=== PATIENT | male | born 1950 | race Caucasian/White ===

== ENCOUNTER → 2016-03-18 | Outpatient (CLI) | payer OTHER ==
[~2016-03-18] MED LIST: Albuterol 0.083% 2.5 MG/3 ML Neb Soln NEB ONE; Albuterol 0.083% 2.5 MG/3 ML Neb Soln ONE
== END ==
LOC: MW.RT 13:53
DX: I80.9 Phlebitis and thrombophlebitis of unspecified site (principal)
CPT/HCPCS: 94060

== ENCOUNTER 2019-07-31 08:02 | Day surgery (SDC) | payer OTHER ==
[~2019-07-31 08:02] MED LIST changes: -Albuterol 0.083% 2.5 MG/3 ML Neb Soln NEB ONE; -Albuterol 0.083% 2.5 MG/3 ML Neb Soln ONE; +Lactated Ringers 1,000 ML IV SCH
--- NOTE | 2019-07-31 09:43 | PCM.PREANE ---
Preanesthetic Assessment - Anesthesia/Transfusion/Family Hx Anesthesia History: Prior Anesthesia Without Reaction Family History of Anesthesia Reaction: No Transfusion History: Unknown Intubation History: Unknown - Review of Systems General: No Symptoms Pulmonary: No Symptoms Cardiovascular: No Symptoms Gastrointestinal: Diarrhea, Other (3 polyps 2012) Neurological: No Symptoms Other: Reports: None - Physical Assessment Vital Signs: Last Vital Signs Temp 36.6 C 07/31/19 08:15 Pulse 57 L 07/31/19 08:15 Resp 14 07/31/19 08:15 BP 128/65 07/31/19 08:15 Pulse Ox 98 07/31/19 08:15 Height: 6 ft Weight: 99.337 kg ASA Class: 3 Mental Status: Alert & Oriented x3 Airway Class: Mallampati = 2 Dentition: Reports: Normal Dentition Thyro-Mental Finger Breadths: 3 Mouth Opening Finger Breadths: 3 ROM/Head Extension: Full Lungs: Clear to Auscultation, Normal Respiratory Effort Cardiovascular: Regular Rate, Regular Rhythm - Lab Values: Laboratory Last Values SARS Virus RNA (PCR) NEGATIVE (NEGATIVE) 07/31/19 08:25 - Allergies Allergies/Adverse Reactions: Allergies Allergy/AdvReac Type Severity Reaction Status Date / Time doxycycline Allergy Cannot Verified 07/25/19 10:25 Remember NSAIDS (Non-Steroidal Allergy decreased Verified 07/25/19 10:25 Anti-Inflamma kidney function - Blood Blood Available: No - Anesthesia Plan Pre-Op Medication Ordered: None - Acknowledgements Anesthesia Type Planned: MAC Pt an Appropriate Candidate for the Planned Anesthesia: Yes Alternatives and Risks of Anesthesia Discussed w Pt/Guardian: Yes Pt/Guardian Understands and Agrees with Anesthesia Plan: Yes PreAnesthesia Questionnaire HEENT History: Reports: Other (See Below) Other HEENT History: wears glasses Cardiovascular History: Reports: Blood Clots/VTE/DVT, High Cholesterol, Hypertension, Other (See Below) Other Cardiovascular History: hx of DVT to rt leg, hx blood clots to left arm x2, PE 3 years ago- on blood thiner since Respiratory History: Reports: PE, Sleep Apnea Other Respiratory History: hx matthew PE, does not use CPAP, Gastrointestinal History: Reports: Colon Polyp Genitourinary History: Reports: Renal Disease (chronic) Musculoskeletal History: Reports: Back Pain, Chronic, Gout, Neck Pain, Chronic Other Musculoskeletal History: hx of injury to rt knee and rt foot Neurological History: Reports: Head Trauma Other Neuro History: head injury in [place] Psychiatric History: Reports: PTSD Endocrine/Metabolic History: Reports: None Hematologic History: Reports: Anticoagulation Therapy Other Hematologic History: unknown if transfusion Immunologic History: Reports: None Oncologic (Cancer) History: Reports: None Dermatologic History: Reports: None - Past Surgical History Head Surgeries/Procedures: Reports: None HEENT Surgical History: Reports: None Cardiovascular Surgical History: Reports: None Respiratory Surgical History: Reports: None GI Surgical History: Reports: Appendectomy, Colonoscopy (x2) Male Surgical History: Reports: None Endocrine Surgical History: Reports: None Neurological Surgical History: Reports: Lumbar Spine Other Neurological Surgeries/Procedures: hx back surgery Musculoskeletal Surgical History: Reports: Other (See Below) Other Musculoskeletal Surgeries/Procedures:: hx of rt foot surgery, rt knee surgery Oncologic Surgical History: Reports: None Dermatological Surgical History: Reports: None - SUBSTANCE USE Smoking Status *Q: Former Smoker Tobacco Use Within Last Twelve Months: No Recreational Drug Use History: No - HOME MEDS Home Medications: Home Meds Furosemide [Lasix] 40 mg PO DAILY 10/30/13 [History] Losartan [Cozaar] 50 mg PO DAILY 10/30/13 [History] Albuterol Sulfate [Proair Respiclick] 2 puff INH Q4H PRN 07/25/19 [History] Gabapentin [Neurontin] 300 mg PO BEDTIME PRN 07/25/19 [History] amLODIPine [Norvasc] 5 mg PO DAILY 07/25/19 [History] atorvaSTATin Calcium [Atorvastatin Calcium] 40 mg PO DAILY 07/25/19 [History] minoxidiL [Minoxidil] 0.5 tab PO DAILY 07/25/19 [History] Warfarin Sodium 1 tab PO DAILY #0 07/31/19 [Rx] - CURRENT (IN HOUSE) MEDS Current Meds: Current Medications Lactated Ringer's (Ringers, Lactated) 1,000 mls @ 125 mls/hr IV ASDIRECTED [facility]
[2019-07-31] MEDS ORDERED: Propofol 200 MG/20 ML SDV ONE (10:04)
[2019-07-31] MEDS ORDERED: ePHEDrine 50 MG/ML SDV ONE (10:17)
--- NOTE | 2019-07-31 11:13 | PCM.POSTAN ---
POST ANESTHESIA ASSESSMENT - MENTAL STATUS Mental Status: Alert, Oriented - VITAL SIGNS Vital Signs: Last Vital Signs Temp 36.4 C 07/31/19 10:50 Pulse 70 07/31/19 11:05 Resp 13 07/31/19 11:05 BP 118/57 L 07/31/19 11:05 Pulse Ox 98 07/31/19 11:05 - RESPIRATORY Respiratory Status: Respiratory Rate WNL, Airway Patent, O2 Saturation Stable - CARDIOVASCULAR CV Status: Pulse Rate WNL, Blood Pressure Stable - GASTROINTESTINAL GI Status: No Symptoms - PAIN Pain Score: 0 - POST OP HYDRATION Hydration Status: Adequate & Stable - OBSERVATIONS Free Text/Narrative:: No anesthesia problems
--- NOTE | 2019-07-31 11:39 | PCM48HPAN ---
Post Anesthesia Note - EVALUATION WITHIN 48HRS OF ANESTHETIC Vital Signs in Normal Range: Yes Patient Participated in Evaluation: Yes Respiratory Function Stable: Yes Airway Patent: Yes Cardiovascular Function Stable: Yes Hydration Status Stable: Yes Pain Control Satisfactory: Yes Nausea and Vomiting Control Satisfactory: Yes Mental Status Recovered: Yes Vital Signs: Last Vital Signs Temp 36.4 C 07/31/19 10:50 Pulse 63 07/31/19 11:15 Resp 16 07/31/19 11:15 BP 130/60 07/31/19 11:15 Pulse Ox 96 07/31/19 11:15 - COMMENTS/OBSERVATIONS Free Text/Narrative:: No anesthesia problems
--- NOTE | 2019-07-31 12:33 | PCM.OPNOTE ---
- General Post-Op/Procedure Note Date of Surgery/Procedure: 07/31/19 Operative Procedure(s): colonoscopy w snare Findings: see [id number] Pre Op Diagnosis: hx colon polyp Post-Op Diagnosis: Same Anesthesia Technique: Moderate Sedation Primary Surgeon: Mervin Davila Pathology: sent Complications: None Condition: Good Free Text/Narrative:: Intake & Output 07/30/19 07/31/19 07/31/19 22:59 06:59 14:59 Intake Total 350 Balance 350
--- NOTE | 2019-07-31 17:31 | OR ---
SURGEON: Mervin Davila MD DATE OF PROCEDURE: 07/31/2019 PREOPERATIVE DIAGNOSIS: History of colon polyp. POSTOPERATIVE DIAGNOSIS: Colon polyp. PROCEDURE PERFORMED: Colonoscopy with snare polypectomy. DESCRIPTION OF PROCEDURE: The patient was taken to the endoscopy room. A time out was called, patient identified, and procedure identified. Diprivan was then administrated. Patient went from awake to sleep, hearing doctor talking or door closing is normal. Perineum inspection and digital examination were then performed. A well- lubricated colonoscope was gently inserted through the rectum, advanced past the rectosigmoid junction, the descending colon, splenic flexure, transverse colon, hepatic flexure, ascending colon, arrived to the cecum. Cecum was identified as dictated in the finding. Then the scope was carefully withdrawn while attention was paid to the mucosal surface for any abnormality. Air will be sucked out during the scope withdrawal. At the rectum, retroflexed to examine any rectal diseases, fistula or hemorrhoids. During mucosal examination, abnormality or polyp encountered. Using snare equipment, the abnormality or the polyp was then snared off using electrocautery. The Patient tolerated procedure well. There were no intraoperative complications, and Dr. Davila was present throughout the whole procedure. FINDINGS: 1. The patient was easily sedated with [employer] and Diprivan. The patient was soundly snoring. 2. Bowel prep was average with a large amount of liquid stool. No semi-formed stool. 3. Colon was rather straightforward. Cecum was indicated by ileocecal fold, one-to-one indentation, appendiceal orifice, and light emittance. Scope was slowly withdrawn with irrigation and mucosa examined. The patient had several polyps. Please refer to path report for distance and size. One small one at cecum and then two more along the path, and then one was about 5 mm; at the scope coming out, about 25 cm. All were removed and captured. The patient had mild internal hemorrhoids and mild external hemorrhoids. The patient will benefit from a repeat colonoscopy depending on the polyp pathology or clinically indicated otherwise. Other than the polyps, the patient does not have other growth, diverticulosis, inflammation, stricture, ulceration, AV malformation or bleeding, none of those. JOHNNA / ARIS /[id number]
== END 2019-07-31 11:48 | disposition home or self-care (01) ==
LOC: MW.SDS 08:02
PROVIDERS: ATTEND Surgery
DX: Z12.11 Encounter for screening for malignant neoplasm of colon (principal); D12.0 Benign neoplasm of cecum; K64.8 Other hemorrhoids; N18.9 Chronic kidney disease, unspecified; K64.4 Residual hemorrhoidal skin tags; Z11.59 Encounter for screening for other viral diseases; Z86.010 Personal history of colon polyps; Z87.891 Personal history of nicotine dependence; Z88.5 Allergy status to narcotic agent; Z88.8 Allergy status to other drugs, medicaments and biological substances; Z79.899 Other long term (current) drug therapy; Z90.49 Acquired absence of other specified parts of digestive tract
CPT/HCPCS: 45385; 87635; J2704; U0002

== ENCOUNTER 2019-08-12 13:21 | Inpatient (IN) | payer OTHER ==
[2019-08-12] MEDS ORDERED: Sodium Chloride 0.9% 10 ML Syringe FLUSH PRN (13:24)
[2019-08-12] MEDS ORDERED: Sodium Chloride 0.9% 2.5 ML Syringe FLUSH PRN (13:24)
[2019-08-12] MEDS ORDERED: Sodium Chloride 0.9% 1,000 ML IV ONE ×2 (13:24→13:45)
--- NOTE | 2019-08-12 13:36 | EDM.PDOC ---
ED HPI GENERAL MEDICAL PROBLEM - General Chief Complaint: Cardiovascular Problem Stated Complaint: LOW BLOOD PRESSURE Time Seen by Provider: 08/12/19 13:24 - History of Present Illness INITIAL COMMENTS - FREE TEXT/NARRATIVE: History of present illness: 68-year-old male presenting with dizziness/fatigue and decreased activity tolerance for the last 2 weeks. Apparently he had a colonoscopy 2 weeks ago, during which time he was stopped for about 36 hours on his anticoagulation (had been on Coumadin and was bridged to Lovenox and off it for a day and a half per patient, then restarted). In addition to that he developed some rectal bleeding for the last 5 days that now has stopped, both black discoloration and bloody. He also developed a UTI after the colonoscopy as well as some difficulty passing urine. He has been on sulfa for that. He was apparently in Dr. Davila's office (the surgeon who did the colonoscopy 2 weeks ago) for a follow-up, and the patient was found to be hypotensive, based on the patient's symptoms and low blood pressure, which was at the lowest in the 80s systolic, Dr. Davila sent the patient over here to the emergency department for evaluation. Review of systems: As per history of present illness and below otherwise all systems reviewed and negative. Past medical history: As per history of present illness and as reviewed below otherwise noncontributory. Renal insufficiency, multiple pulmonary emboli and DVT Surgical history: As per history of present illness and as reviewed below otherwise noncontributory. Colonoscopy Social history: No reported history of drug or alcohol abuse. Family history: As per history of present illness and as reviewed below otherwise noncontributory. Physical exam: GEN: no acute distress, well appearing HEENT: Atraumatic, normocephalic, mucous membranes moist, Neck: supple, nontender, trachea midline. Lungs: No respiratory distress. Heart: RRR Abdomen: Soft, nondistended, nontender. Rectal: No stool in the vault, prostate not tender or enlarged, no external hemorrhoids, on occult blood testing there was color change/occult positivity, control successful. Back: nontender Extremities: Atraumatic. Neurovascularly intact. Neuro: Awake, alert, oriented. Neuro Exam nonfocal. Able to ambulate into the emergency department without any ataxia, weakness or unsteadiness. Skin: warm, dry, no lesions, color appears normal, no pallor Diagnostics: Labs, EKG, type and screen, UA Therapeutics: IV fluids MDM: Impression: [] Plan: [] Definitive disposition and diagnosis as appropriate pending reevaluation and review of above. - Related Data Allergies Allergy/AdvReac Type Severity Reaction Status Date / Time doxycycline Allergy Cannot Verified 08/12/19 13:38 Remember NSAIDS (Non-Steroidal Allergy decreased Verified 08/12/19 13:38 Anti-Inflamma kidney function Home Meds: Home Meds Furosemide [Lasix] 40 mg PO DAILY 10/30/13 [History] Losartan [Cozaar] 50 mg PO DAILY 10/30/13 [History] Albuterol Sulfate [Proair Respiclick] 2 puff INH Q4H PRN 07/25/19 [History] Gabapentin [Neurontin] 300 mg PO BEDTIME PRN 07/25/19 [History] amLODIPine [Norvasc] 5 mg PO DAILY 07/25/19 [History] atorvaSTATin Calcium [Atorvastatin Calcium] 40 mg PO DAILY 07/25/19 [History] minoxidiL [Minoxidil] 0.5 tab PO DAILY 07/25/19 [History] Warfarin Sodium 1 tab PO DAILY #0 07/31/19 [Rx] Past Medical History HEENT History: Reports: Other (See Below) Other HEENT History: wears glasses Cardiovascular History: Reports: Blood Clots/VTE/DVT, High Cholesterol, Hypertension, Other (See Below) Other Cardiovascular History: hx of DVT to rt leg, hx blood clots to left arm x2, PE 3 years ago- on blood thiner since Respiratory History: Reports: PE, Sleep Apnea Other Respiratory History: hx matthew PE, does not use CPAP, Gastrointestinal History: Reports: Colon Polyp Genitourinary History: Reports: Renal Disease (chronic) Musculoskeletal History: Reports: Back Pain, Chronic, Gout, Neck Pain, Chronic Other Musculoskeletal History: hx of injury to rt knee and rt foot Neurological History: Reports: Head Trauma Other Neuro History: head injury in [place] Psychiatric History: Reports: PTSD Endocrine/Metabolic History: Reports: None Hematologic History: Reports: Anticoagulation Therapy Other Hematologic History: unknown if transfusion Immunologic History: Reports: None Oncologic (Cancer) History: Reports: None Dermatologic History: Reports: None - Past Surgical History Head Surgeries/Procedures: Reports: None HEENT Surgical History: Reports: None Cardiovascular Surgical History: Reports: None Respiratory Surgical History: Reports: None GI Surgical History: Reports: Appendectomy, Colonoscopy (x2) Male Surgical History: Reports: None Endocrine Surgical History: Reports: None Neurological Surgical History: Reports: Lumbar Spine Other Neurological Surgeries/Procedures: hx back surgery Musculoskeletal Surgical History: Reports: Other (See Below) Other Musculoskeletal Surgeries/Procedures:: hx of rt foot surgery, rt knee surgery Oncologic Surgical History: Reports: None Dermatological Surgical History: Reports: None ED ROS GENERAL - Review of Systems Review Of Systems: See Below (See HPI) ED EXAM, GENERAL - Physical Exam Exam: See Below (See HPI) EKG INTERPRETATION EKG Interpretation Comments: EKG performed at 1:28 PM, sinus rhythm, rate 65, specific ST changes over anterior leads, patient is asymptomatic at this time, not consistent with STEMI or acute ischemia Course - Vital Signs Text/Narrative:: Patient with acute hemoglobin drop after recent colonoscopy associated with some on going rectal bleeding that has since resolved. Patient has been on Lovenox since the day after the procedure. Creatinine also acutely elevated. Hypotensive on arrival here, given 2 L of normal saline with improvement of his blood pressure. However as creatinine is acutely worsened from his baseline and hemoglobin has dropped from 13-8.3 in the last 7 days, will admit the patient for close monitoring/observation. Occult blood testing on rectal exam is positive. The patient is taking Lovenox. This was discussed both with the admitting physician and the patient's surgeon who performed the colonoscopy, Lovenox will be held. Last Recorded V/S: Last Vital Signs Temp 96.1 F L 08/12/19 13:39 Pulse 64 08/12/19 15:53 Resp 16 08/12/19 15:53 BP 116/54 L 08/12/19 15:53 Pulse Ox 96 08/12/19 15:53 - Orders/Labs/Meds Orders: Active Orders 24 hr Category Date Time Status EKG Documentation Completion [RC] STAT Care 08/12/19 13:25 Active CORONAVIRUS COVID-19 RAPID [MOLEC] Stat Lab 08/12/19 16:11 Received Sodium Chloride 0.9% [Saline Flush] Med 08/12/19 13:24 Active 10 ml FLUSH ASDIRECTED PRN Sodium Chloride 0.9% [Saline Flush] Med 08/12/19 13:24 Active 2.5 ml FLUSH ASDIRECTED PRN Saline Lock Insert [OM.PC] Stat Oth 08/12/19 13:24 Ordered Medication Orders Sodium Chloride (Saline Flush) 10 ml FLUSH ASDIRECTED PRN PRN Reason: Keep Vein Open Last Admin: 08/12/19 13:45 Dose: 10 ml Documented by: MILTON Sodium Chloride (Saline Flush) 2.5 ml FLUSH ASDIRECTED PRN PRN Reason: Keep Vein Open Last Admin: 08/12/19 13:44 Dose: 2.5 ml Documented by: MILTON Labs: Laboratory Tests 08/12/19 08/12/19 08/12/19 Range/Units 13:40 13:40 13:40 WBC 7.26 (4.0-11.0) K/uL RBC 2.85 L (4.50-5.90) M/uL Hgb 8.3 L (13.0-17.0) g/dL Hct 25.3 L (38.0-50.0) % MCV 88.8 (80.0-98.0) fL MCH 29.1 (27.0-32.0) pg MCHC 32.8 (31.0-37.0) g/dL RDW Std Deviation 43.9 (28.0-62.0) fl RDW Coeff of Cherelle 14 (11.0-15.0) % Plt Count 248 (150-400) K/uL MPV 9.00 (7.40-12.00) fL Neut % (Auto) 68.4 (48.0-80.0) % Lymph % (Auto) 20.7 (16.0-40.0) % [place] % (Auto) 7.4 (0.0-15.0) % Eos % (Auto) 3.2 (0.0-7.0) % Baso % (Auto) 0.3 (0.0-1.5) % Neut # (Auto) 5.0 (1.4-5.7) K/uL Lymph # (Auto) 1.5 (0.6-2.4) K/uL [place] # (Auto) 0.5 (0.0-0.8) K/uL Eos # (Auto) 0.2 (0.0-0.7) K/uL Baso # (Auto) 0.0 (0.0-0.1) K/uL Nucleated RBC % 0.0 /100WBC Nucleated RBCs # 0 K/uL INR 1.05 APTT 36.5 H (18.6-31.3) SEC Sodium 139 (136-148) mmol/L Potassium 5.2 H (3.5-5.1) mmol/L Chloride 108 H (98-107) mmol/L Carbon Dioxide 23.9 (21.0-32.0) mmol/L BUN 49 H (7.0-18.0) mg/dL Creatinine 3.8 H (0.8-1.3) mg/dL Est Cr Clr Drug Dosing 19.85 mL/min Estimated GFR (MDRD) 15.8 ml/min Glucose 98 (74-106) mg/dL Calcium 8.2 L (8.5-10.1) mg/dL Total Bilirubin 0.2 (0.2-1.0) mg/dL AST 34 (15-37) IU/L ALT 51 (14-63) IU/L Alkaline Phosphatase 53 (46-116) U/L Troponin I < 0.050 (0.000-0.056) ng/mL Total Protein 5.9 L (6.4-8.2) g/dL Albumin 3.3 L (3.4-5.0) g/dL Globulin 2.6 (2.6-4.0) g/dL Albumin/Globulin Ratio 1.3 (0.9-1.6) Blood Type Antibody Screen 08/12/19 Range/Units 13:40 WBC (4.0-11.0) K/uL RBC (4.50-5.90) M/uL Hgb (13.0-17.0) g/dL Hct (38.0-50.0) % MCV (80.0-98.0) fL MCH (27.0-32.0) pg MCHC (31.0-37.0) g/dL RDW Std Deviation (28.0-62.0) fl RDW Coeff of Cherelle (11.0-15.0) % Plt Count (150-400) K/uL MPV (7.40-12.00) fL Neut % (Auto) (48.0-80.0) % Lymph % (Auto) (16.0-40.0) % [place] % (Auto) (0.0-15.0) % Eos % (Auto) (0.0-7.0) % Baso % (Auto) (0.0-1.5) % Neut # (Auto) (1.4-5.7) K/uL Lymph # (Auto) (0.6-2.4) K/uL [place] # (Auto) (0.0-0.8) K/uL Eos # (Auto) (0.0-0.7) K/uL Baso # (Auto) (0.0-0.1) K/uL Nucleated RBC % /100WBC Nucleated RBCs # K/uL INR APTT (18.6-31.3) SEC Sodium (136-148) mmol/L Potassium (3.5-5.1) mmol/L Chloride (98-107) mmol/L Carbon Dioxide (21.0-32.0) mmol/L BUN (7.0-18.0) mg/dL Creatinine (0.8-1.3) mg/dL Est Cr Clr Drug Dosing mL/min Estimated GFR (MDRD) ml/min Glucose (74-106) mg/dL Calcium (8.5-10.1) mg/dL Total Bilirubin (0.2-1.0) mg/dL AST (15-37) IU/L ALT (14-63) IU/L Alkaline Phosphatase (46-116) U/L Troponin I (0.000-0.056) ng/mL Total Protein (6.4-8.2) g/dL Albumin (3.4-5.0) g/dL Globulin (2.6-4.0) g/dL Albumin/Globulin Ratio (0.9-1.6) Blood Type A POSITIVE Antibody Screen NEGATIVE Meds: Medications Generic Name Dose Route Start Last Admin Trade Name Freq PRN Reason Stop Dose Admin Sodium Chloride 10 ml 08/12/19 13:24 08/12/19 13:45 Saline Flush FLUSH 10 ml ASDIRECTED PRN Administration Keep Vein Open Sodium Chloride 2.5 ml 08/12/19 13:24 08/12/19 13:44 Saline Flush FLUSH 2.5 ml ASDIRECTED PRN Administration Keep Vein Open Discontinued Medications Generic Name Dose Route Start Last Admin Trade Name Freq PRN Reason Stop Dose Admin Sodium Chloride 1,000 mls @ 999 mls/hr 08/12/19 13:24 08/12/19 13:44 Normal Saline IV 08/12/19 14:24 999 mls/hr .Bolus ONE Administration Sodium Chloride 1,000 mls @ 999 mls/hr 08/12/19 13:45 08/12/19 13:51 Normal Saline IV 08/12/19 14:45 999 mls/hr .Bolus ONE Administration - Re-Assessments/Exams Free Text/Narrative Re-Assessment/Exam: 08/12/19 13:35 Patient still hypotensive, after first liter of fluid. Second liter given. 08/12/19 14:[address] Gloria for admission to the hospital. He accepts the patient. Recommends observation/telemetry. 08/12/19 15:01 Discussed results with patient and recommendation for admission. He agrees with this plan. Rectal exam was performed which shows occult positivity though no santos blood. Dr. Davila paged to discuss rectal exam findings. Awaiting callback 08/12/19 16:49 Dr. Davila called back, case, labs and exam including occult positive rectal exam were discussed and plan for admission. He agrees with this plan. He requests to hold the Lovenox for 24 hours and reassess if the patient has ongoing bleeding to determine if need for repeat colonoscopy. He will see the patient and check on him tonight. Also called Dr. Gloria back to update him on this as well, he will add Dr. Davila as consulting. Departure - Departure Time of Disposition: 14:50 Disposition: Refer to Observation Clinical Impression: Acute renal insufficiency, Rectal bleeding Anemia Qualifiers: Other causes of anemia: acute posthemorrhagic Hypotension Qualifiers: Hypotension type: unspecified hypotension type Qualified Code(s): I95.9 - Hypotension, unspecified Sepsis Event Note (ED) - Focused Exam Vital Signs: Vital Signs Temp Pulse Resp BP Pulse Ox 08/12/19 14:45 65 17 97/44 L 98 08/12/19 14:20 68 17 84/48 L 98 08/12/19 13:46 64 17 81/35 L 98 08/12/19 13:39 96.1 F L 69 17 102/34 L 96 - My Orders Last 24 Hours: My Active Orders 08/12/19 13:24 Sodium Chloride 0.9% [Saline Flush] 10 ml FLUSH ASDIRECTED PRN Sodium Chloride 0.9% [Saline Flush] 2.5 ml FLUSH ASDIRECTED PRN Saline Lock Insert [OM.PC] Stat 08/12/19 13:25 EKG Documentation Completion [RC] STAT - Assessment/Plan Last 24 Hours: My Active Orders 08/12/19 13:24 Sodium Chloride 0.9% [Saline Flush] 10 ml FLUSH ASDIRECTED PRN Sodium Chloride 0.9% [Saline Flush] 2.5 ml FLUSH ASDIRECTED PRN Saline Lock Insert [OM.PC] Stat 08/12/19 13:25 EKG Documentation Completion [RC] STAT
[2019-08-12 14:29] LABS: BLOOD UREA NITROGEN,BUN 49 mg/dL (7.0-18.0); CARBON DIOXIDE,CO2 23.9 mmol/L (21.0-32.0); CHLORIDE,CL 108 mmol/L (98-107); GLUCOSE RANDOM 98 mg/dL (74-106); POTASSIUM,K 5.2 mmol/L (3.5-5.1); SODIUM,NA 139 mmol/L (136-148)
[2019-08-12] MEDS: Sodium Chloride 0.9% 1,000 ML IV SCH (18:00)
[2019-08-12] MEDS: Pantoprazole 40 MG in Sodium Chloride 0.9% 10 ML IV SCH (18:30)
[2019-08-12] MEDS ORDERED: Ondansetron 4 MG/2 ML SDV IVPUSH PRN (18:42)
--- NOTE | 2019-08-12 18:51 | PCM.HP.2 ---
H&P History of Present Illness - General Date of Service: 08/12/19 Admit Problem/Dx: Admission Diagnosis/Problem Admission Diagnosis/Problem Hypotension - History of Present Illness Initial Comments - Free Text/Narative: 68 yo male with pmh of HTN, CKD, recurrent blood clots who on August 01 underwent a repeat screening colonoscopy by Dr. Davila and had several polyps removed. Patient is on coumadin but was bridged with lovenox for the colonoscopy. He report difficulty urinating after the colonoscopy and [facility] He also reported red blood and black stool following the colonoscopy but this has stopped as of yesterday. He was seen in Dr. Davila's clinic today and was sent to the ED when he was noted to be hypotensive. IN the ED he was noted to have blood pressure in the 80s-90s systolic. He had no santos blood or stool on rectal exam but it was Hemoccult positive. PAtient was given 2 liters of normal saline with improvement in blood pressure. Patient also reports feeling better. - Related Data Allergies/Adverse Reactions: Allergies Allergy/AdvReac Type Severity Reaction Status Date / Time doxycycline Allergy Cannot Verified 08/12/19 18:01 Remember NSAIDS (Non-Steroidal Allergy decreased Verified 08/12/19 18:01 Anti-Inflamma kidney function Home Medications: Home Meds Furosemide [Lasix] 40 mg PO DAILY 10/30/13 [History] Losartan [Cozaar] 50 mg PO DAILY 10/30/13 [History] Albuterol Sulfate [Proair Respiclick] 2 puff INH Q4H PRN 07/25/19 [History] Gabapentin [Neurontin] 300 mg PO BEDTIME PRN 07/25/19 [History] amLODIPine [Norvasc] 5 mg PO DAILY 07/25/19 [History] atorvaSTATin Calcium [Atorvastatin Calcium] 40 mg PO DAILY 07/25/19 [History] minoxidiL [Minoxidil] 0.5 tab PO DAILY 07/25/19 [History] Warfarin Sodium 1 tab PO DAILY #0 07/31/19 [Rx] Past Medical History HEENT History: Reports: Other (See Below) Other HEENT History: wears glasses Cardiovascular History: Reports: Blood Clots/VTE/DVT, High Cholesterol, Hypertension, Other (See Below) Other Cardiovascular History: hx of DVT to rt leg, hx blood clots to left arm x2, PE 3 years ago- on blood thiner since Respiratory History: Reports: PE, Sleep Apnea Other Respiratory History: hx matthew PE, does not use CPAP, Gastrointestinal History: Reports: Colon Polyp Genitourinary History: Reports: Renal Disease (chronic) Musculoskeletal History: Reports: Back Pain, Chronic, Gout, Neck Pain, Chronic Other Musculoskeletal History: hx of injury to rt knee and rt foot Neurological History: Reports: Head Trauma Other Neuro History: head injury in [place] Psychiatric History: Reports: PTSD Endocrine/Metabolic History: Reports: None Hematologic History: Reports: Anticoagulation Therapy Other Hematologic History: unknown if transfusion Immunologic History: Reports: None Oncologic (Cancer) History: Reports: None Dermatologic History: Reports: None - Infectious Disease History Infectious Disease History: Reports: None - Past Surgical History Head Surgeries/Procedures: Reports: None HEENT Surgical History: Reports: None Cardiovascular Surgical History: Reports: None Respiratory Surgical History: Reports: None GI Surgical History: Reports: Appendectomy, Colonoscopy (x2) Male Surgical History: Reports: None Endocrine Surgical History: Reports: None Neurological Surgical History: Reports: Lumbar Spine Other Neurological Surgeries/Procedures: hx back surgery Musculoskeletal Surgical History: Reports: Other (See Below) Other Musculoskeletal Surgeries/Procedures:: hx of rt foot surgery, rt knee surgery Oncologic Surgical History: Reports: None Dermatological Surgical History: Reports: None Social & Family History - Family History Family Medical History: Noncontributory - Tobacco Use Smoking Status *Q: Never Smoker Second Hand Smoke Exposure: No - Caffeine Use Caffeine Use: Reports: Soda - Recreational Drug Use Recreational Drug Use: No H&P Review of Systems - Review of Systems: Review Of Systems: Comprehensive ROS is negative, except as noted in HPI. Exam - Exam Exam: See Below - Vital Signs Vital Signs: Last Vital Signs Temp 35.8 C L 08/12/19 17:39 Pulse 62 08/12/19 17:39 Resp 16 08/12/19 17:39 BP 110/54 L 08/12/19 17:39 Pulse Ox 93 L 08/12/19 17:39 Weight: 99.564 kg - Exam General: Alert, Oriented HEENT: Mucosa Moist & [place] Lungs: Clear to Auscultation, Normal Respiratory Effort Cardiovascular: Regular Rate, Regular Rhythm GI/Abdominal Exam: Normal Bowel Sounds, Soft, Non-Tender Extremities: Non-Tender, No Pedal Edema Skin: Warm, Dry, Intact Neurological: Cranial Nerves Intact, Reflexes Equal Bilateral - Patient Data Lab Results Last 24 hrs: Laboratory Results - last 24 hr 08/12/19 08/12/19 08/12/19 Range/Units 13:40 13:40 13:40 WBC 7.26 (4.0-11.0) K/uL RBC 2.85 L (4.50-5.90) M/uL Hgb 8.3 L (13.0-17.0) g/dL Hct 25.3 L (38.0-50.0) % MCV 88.8 (80.0-98.0) fL MCH 29.1 (27.0-32.0) pg MCHC 32.8 (31.0-37.0) g/dL RDW Std Deviation 43.9 (28.0-62.0) fl RDW Coeff of Cherelle 14 (11.0-15.0) % Plt Count 248 (150-400) K/uL MPV 9.00 (7.40-12.00) fL Neut % (Auto) 68.4 (48.0-80.0) % Lymph % (Auto) 20.7 (16.0-40.0) % [place] % (Auto) 7.4 (0.0-15.0) % Eos % (Auto) 3.2 (0.0-7.0) % Baso % (Auto) 0.3 (0.0-1.5) % Neut # (Auto) 5.0 (1.4-5.7) K/uL Lymph # (Auto) 1.5 (0.6-2.4) K/uL [place] # (Auto) 0.5 (0.0-0.8) K/uL Eos # (Auto) 0.2 (0.0-0.7) K/uL Baso # (Auto) 0.0 (0.0-0.1) K/uL Nucleated RBC % 0.0 /100WBC Nucleated RBCs # 0 K/uL INR 1.05 APTT 36.5 H (18.6-31.3) SEC Sodium 139 (136-148) mmol/L Potassium 5.2 H (3.5-5.1) mmol/L Chloride 108 H (98-107) mmol/L Carbon Dioxide 23.9 (21.0-32.0) mmol/L BUN 49 H (7.0-18.0) mg/dL Creatinine 3.8 H (0.8-1.3) mg/dL Est Cr Clr Drug Dosing 19.85 mL/min Estimated GFR (MDRD) 15.8 ml/min Glucose 98 (74-106) mg/dL Calcium 8.2 L (8.5-10.1) mg/dL Total Bilirubin 0.2 (0.2-1.0) mg/dL AST 34 (15-37) IU/L ALT 51 (14-63) IU/L Alkaline Phosphatase 53 (46-116) U/L Troponin I < 0.050 (0.000-0.056) ng/mL Total Protein 5.9 L (6.4-8.2) g/dL Albumin 3.3 L (3.4-5.0) g/dL Globulin 2.6 (2.6-4.0) g/dL Albumin/Globulin Ratio 1.3 (0.9-1.6) Urine Color Urine Appearance Urine pH (5.0-8.0) Ur Specific [place] (1.001-1.035) Urine Protein (NEGATIVE) mg/dL Urine Glucose (UA) (NEGATIVE) mg/dL Urine Ketones (NEGATIVE) mg/dL Urine Occult Blood (NEGATIVE) Urine Nitrite (NEGATIVE) Urine Bilirubin (NEGATIVE) Urine Urobilinogen (<2.0) EU/dL Ur Leukocyte Esterase (NEGATIVE) Urine RBC (0-2/HPF) Urine WBC (0-5/HPF) Ur Epithelial Cells (NONE-FEW) Urine Bacteria (NEGATIVE) COVID-19 (BRYCE) (NEGATIVE) Blood Type Antibody Screen 08/12/19 08/12/19 08/12/19 Range/Units 13:40 16:01 16:11 WBC (4.0-11.0) K/uL RBC (4.50-5.90) M/uL Hgb (13.0-17.0) g/dL Hct (38.0-50.0) % MCV (80.0-98.0) fL MCH (27.0-32.0) pg MCHC (31.0-37.0) g/dL RDW Std Deviation (28.0-62.0) fl RDW Coeff of Cherelle (11.0-15.0) % Plt Count (150-400) K/uL MPV (7.40-12.00) fL Neut % (Auto) (48.0-80.0) % Lymph % (Auto) (16.0-40.0) % [place] % (Auto) (0.0-15.0) % Eos % (Auto) (0.0-7.0) % Baso % (Auto) (0.0-1.5) % Neut # (Auto) (1.4-5.7) K/uL Lymph # (Auto) (0.6-2.4) K/uL [place] # (Auto) (0.0-0.8) K/uL Eos # (Auto) (0.0-0.7) K/uL Baso # (Auto) (0.0-0.1) K/uL Nucleated RBC % /100WBC Nucleated RBCs # K/uL INR APTT (18.6-31.3) SEC Sodium (136-148) mmol/L Potassium (3.5-5.1) mmol/L Chloride (98-107) mmol/L Carbon Dioxide (21.0-32.0) mmol/L BUN (7.0-18.0) mg/dL Creatinine (0.8-1.3) mg/dL Est Cr Clr Drug Dosing mL/min Estimated GFR (MDRD) ml/min Glucose (74-106) mg/dL Calcium (8.5-10.1) mg/dL Total Bilirubin (0.2-1.0) mg/dL AST (15-37) IU/L ALT (14-63) IU/L Alkaline Phosphatase (46-116) U/L Troponin I (0.000-0.056) ng/mL Total Protein (6.4-8.2) g/dL Albumin (3.4-5.0) g/dL Globulin (2.6-4.0) g/dL Albumin/Globulin Ratio (0.9-1.6) Urine Color YELLOW Urine Appearance CLEAR Urine pH 6.0 (5.0-8.0) Ur Specific [place] 1.020 (1.001-1.035) Urine Protein NEGATIVE (NEGATIVE) mg/dL Urine Glucose (UA) NEGATIVE (NEGATIVE) mg/dL Urine Ketones NEGATIVE (NEGATIVE) mg/dL Urine Occult Blood TRACE-INTACT H (NEGATIVE) Urine Nitrite NEGATIVE (NEGATIVE) Urine Bilirubin NEGATIVE (NEGATIVE) Urine Urobilinogen 0.2 (<2.0) EU/dL Ur Leukocyte Esterase NEGATIVE (NEGATIVE) Urine RBC 0-2 (0-2/HPF) Urine WBC NONE SEEN (0-5/HPF) Ur Epithelial Cells RARE (NONE-FEW) Urine Bacteria NOT SEEN (NEGATIVE) COVID-19 (BRYCE) NEGATIVE (NEGATIVE) Blood Type A POSITIVE Antibody Screen NEGATIVE Result Diagrams: 08/12/19 13:40 08/12/19 13:40 Sepsis Event Note - Evaluation Sepsis Screening Result: No Definite Risk - Focused Exam Vital Signs: Vital Signs Temp Pulse Resp BP Pulse Ox 08/12/19 17:39 35.8 C L 62 16 110/54 L 93 L 08/12/19 17:17 62 18 119/58 L 99 08/12/19 15:53 64 16 116/54 L 96 08/12/19 14:45 65 17 97/44 L 98 08/12/19 14:20 68 17 84/48 L 98 08/12/19 13:46 64 17 81/35 L 98 08/12/19 13:39 35.6 C L 69 17 102/34 L 96 Date Exam was Performed: 08/12/19 Time Exam was Performed: 18:44 Problem List Initiated/Reviewed/Updated: Yes Orders Last 24hrs: Active Orders 24 hr Category Date Time Status Patient Status [ADT] Routine ADT 08/12/19 15:08 Active Antiembolic Devices [RC] PER UNIT ROUTINE Care 08/12/19 18:43 Ordered Oxygen Therapy [RC] PRN Care 08/12/19 18:42 Ordered Up ad Zulema [RC] ASDIRECTED Care 08/12/19 18:42 Ordered VTE/DVT Education [RC] PER UNIT ROUTINE Care 08/12/19 18:42 Ordered Vital Signs [RC] Q4H Care 08/12/19 18:42 Ordered BASIC METABOLIC PANEL,BMP [CHEM] AM Lab 08/13/19 05:11 Ordered CBC WITH AUTO DIFF [HEME] AM Lab 08/13/19 05:11 Ordered CBC WITH AUTO DIFF [HEME] Routine Lab 08/12/19 18:41 Ordered Ondansetron [Zofran] Med 08/12/19 18:42 Ordered 4 mg IVPUSH Q4H PRN Pantoprazole [ProTONIX IV] 40 mg Med 08/12/19 17:00 Active Sodium Chloride 0.9% [Normal Saline] 10 ml IV Q12H Sodium Chloride 0.9% [Normal Saline] 1,000 ml Med 08/12/19 17:00 Active IV ASDIRECTED Sodium Chloride 0.9% [Saline Flush] Med 08/12/19 13:24 Active 10 ml FLUSH ASDIRECTED PRN Sodium Chloride 0.9% [Saline Flush] Med 08/12/19 13:24 Active 2.5 ml FLUSH ASDIRECTED PRN Saline Lock Insert [OM.PC] Stat Oth 08/12/19 13:24 Ordered Sequential Compression Device [OM.PC] Per Unit Routine Oth 08/12/19 18:43 Ordered Resuscitation Status Routine Resus Stat 08/12/19 18:42 Ordered Medication Orders Pantoprazole Sodium 40 mg/ (Sodium Chloride) 10 mls @ 300 mls/hr IV Q12H MISSAEL Last Admin: 08/12/19 18:30 Dose: 300 mls/hr Documented by: GUMEYVO Sodium Chloride (Normal Saline) 1,000 mls @ 125 mls/hr IV ASDIRECTED MISSAEL Last Admin: 08/12/19 18:00 Dose: 125 mls/hr Documented by: GUMEYVO Sodium Chloride (Saline Flush) 10 ml FLUSH ASDIRECTED PRN PRN Reason: Keep Vein Open Last Admin: 08/12/19 13:45 Dose: 10 ml Documented by: MILTON Sodium Chloride (Saline Flush) 2.5 ml FLUSH ASDIRECTED PRN PRN Reason: Keep Vein Open Last Admin: 08/12/19 13:44 Dose: 2.5 ml Documented by: TOMÁSTALGlenroy Assessment/Plan Comment:: 68 yo male admitted for acute GI bleed likely 2/2 to recent polypectomy. Bleeding may have already resolved. Dr. Davila has been consulted. We will trend Hgb and place on protonix.
--- NOTE | 2019-08-13 01:48 | PCM.SN.2 ---
- Free Text/Narrative Note: pt seen, chart reviewed; no plan for any procedure for the time being; ok for regular diet; will follow w you; [id number]
[2019-08-13] MEDS: Sodium Chloride 0.9% 1,000 ML IV SCH ×2 (02:48→11:37)
--- NOTE | 2019-08-13 03:00 | CONS ---
DATE OF CONSULTATION: 08/13/2019 DATE OF : 1950 PRIMARY CARE PHYSICIAN: Hugo Childers NP REFERRING PHYSICIAN: Darell Gloria M.D. REASON FOR CONSULTATION: Consulting question is postop anemia. HISTORY OF PRESENT ILLNESS: The patient is a 68-year-old gentleman, who has a history of recurrent PE and 3 weeks status post multiple polypectomy from colonoscopy. Three days after the colonoscopy and polypectomy, the patient experienced rectal bleeding. Of note, the patient was on bridging Lovenox because of recurrent PE and the patient continued Lovenox after the surgery and 3 days later, the patient experienced rectal bleeding per patient, and then what time he took Coumadin and what time he did not take Coumadin was kind of confusing, the patient's stories slightly change. Anyhow, after 3 weeks, the patient showed up in my office just wanted to see how he is doing. The patient remarked that the rectal bleeding has completely resolved. Stool was yellow and no more blood; however, should he feel sluggish and weak and also orthostatic; upon standing up the patient feels dizzy. In light of the situation, the patient is on Lovenox and also the patient was hypotensive to 86/45 in the office. The patient was sent to the emergency room and Dr. Gloria, the hospitalist, who was kind enough to admit the patient for further management, and I was consulted for helping on the postop anemia. In the emergency room, H and H drawn was 8.5 and 25. The patient got some fluid and he said he felt a lot better. PAST MEDICAL HISTORY: Please refer to previous surgical note. PAST SURGICAL HISTORY: Please refer to previous surgical note. ALLERGIES: Please refer to previous surgical note. MEDICATIONS: Please refer to previous surgical note. FAMILY HISTORY: Noncontributory. PHYSICAL EXAMINATION: Upon examination, unfortunately, the patient was sound snoring and sleeping and we will proceed with examination in the morning when the patient is more awake. When I saw the patient in the office, the patient is alert, awake, and denied any abdominal pain, lungs are clear, abdomen is soft. IMPRESSION AND PLAN: Postop anemia. The patient before procedure was above 14 H and H, and patient now is 8.5. The patient would benefit from admission and since the patient is orthostatic, would probably benefit to have some blood transfusion, and if all works out fine, the patient should get a clear instruction regarding resuming his Coumadin, and [facility] continue L[facility] and also start Coumadin 10 mg 1st day and then 7.5 second day and then check INR and then adjust the dose. We will follow the patient with you. As always, thank you for your kind referral. JOHNNA HURST /[id number] MTDSonal
[2019-08-13] MEDS: Pantoprazole 40 MG in Sodium Chloride 0.9% 10 ML IV SCH ×2 (04:11→18:38)
[2019-08-13 07:09] LABS: CARBON DIOXIDE,CO2 20.2 mmol/L (21.0-32.0); POTASSIUM,K 5.9 mmol/L (3.5-5.1)
--- NOTE | 2019-08-13 09:54 | PCM.PN ---
- General Info Date of Service: 08/13/19 - Review of Systems Systems Review Comment:: no blood in stool, no abdominal pain, - Patient Data Vitals - Most Recent: Last Vital Signs Temp 36.7 C 08/13/19 07:50 Pulse 71 08/13/19 07:50 Resp 18 08/13/19 07:50 BP 128/63 08/13/19 07:50 Pulse Ox 97 08/13/19 07:50 Weight - Most Recent: 99.564 kg I&O - Last 24 Hours: Intake & Output 08/12/19 08/13/19 08/13/19 22:59 06:59 14:59 Intake Total 0 1528 Output Total 400 900 Balance -400 628 Lab Results Last 24 Hours: Laboratory Results - last 24 hr 08/12/19 08/12/19 08/12/19 Range/Units 13:40 13:40 13:40 WBC 7.26 (4.0-11.0) K/uL RBC 2.85 L (4.50-5.90) M/uL Hgb 8.3 L (13.0-17.0) g/dL Hct 25.3 L (38.0-50.0) % MCV 88.8 (80.0-98.0) fL MCH 29.1 (27.0-32.0) pg MCHC 32.8 (31.0-37.0) g/dL RDW Std Deviation 43.9 (28.0-62.0) fl RDW Coeff of [place] 14 (11.0-15.0) % Plt Count 248 (150-400) K/uL MPV 9.00 (7.40-12.00) fL Neut % (Auto) 68.4 (48.0-80.0) % Lymph % (Auto) 20.7 (16.0-40.0) % [place] % (Auto) 7.4 (0.0-15.0) % Eos % (Auto) 3.2 (0.0-7.0) % Baso % (Auto) 0.3 (0.0-1.5) % Neut # (Auto) 5.0 (1.4-5.7) K/uL Lymph # (Auto) 1.5 (0.6-2.4) K/uL [place] # (Auto) 0.5 (0.0-0.8) K/uL Eos # (Auto) 0.2 (0.0-0.7) K/uL Baso # (Auto) 0.0 (0.0-0.1) K/uL Nucleated RBC % 0.0 /100WBC Nucleated RBCs # 0 K/uL Absolute Retic (20-80) K/uL Percent Retic (0.5-1.5) % Immature Retic Fraction % INR 1.05 APTT 36.5 H (18.6-31.3) SEC Sodium 139 (136-148) mmol/L Potassium 5.2 H (3.5-5.1) mmol/L Chloride 108 H (98-107) mmol/L Carbon Dioxide 23.9 (21.0-32.0) mmol/L BUN 49 H (7.0-18.0) mg/dL Creatinine 3.8 H (0.8-1.3) mg/dL Est Cr Clr Drug Dosing 19.85 mL/min Estimated GFR (MDRD) 15.8 ml/min Glucose 98 (74-106) mg/dL Calcium 8.2 L (8.5-10.1) mg/dL Iron (50-175) ug/dL Transferrin Ferritin (26-388) ng/mL Total Bilirubin 0.2 (0.2-1.0) mg/dL AST 34 (15-37) IU/L ALT 51 (14-63) IU/L Alkaline Phosphatase 53 (46-116) U/L Troponin I < 0.050 (0.000-0.056) ng/mL Total Protein 5.9 L (6.4-8.2) g/dL Albumin 3.3 L (3.4-5.0) g/dL Globulin 2.6 (2.6-4.0) g/dL Albumin/Globulin Ratio 1.3 (0.9-1.6) Urine Color Urine Appearance Urine pH (5.0-8.0) Ur Specific [place] (1.001-1.035) Urine Protein (NEGATIVE) mg/dL Urine Glucose (UA) (NEGATIVE) mg/dL Urine Ketones (NEGATIVE) mg/dL Urine Occult Blood (NEGATIVE) Urine Nitrite (NEGATIVE) Urine Bilirubin (NEGATIVE) Urine Urobilinogen (<2.0) EU/dL Ur Leukocyte Esterase (NEGATIVE) Urine RBC (0-2/HPF) Urine WBC (0-5/HPF) Ur Epithelial Cells (NONE-FEW) Urine Bacteria (NEGATIVE) COVID-19 (BRYCE) (NEGATIVE) Blood Type Antibody Screen Crossmatch 08/12/19 08/12/19 08/12/19 Range/Units 13:40 16:01 16:11 WBC (4.0-11.0) K/uL RBC (4.50-5.90) M/uL Hgb (13.0-17.0) g/dL Hct (38.0-50.0) % MCV (80.0-98.0) fL MCH (27.0-32.0) pg MCHC (31.0-37.0) g/dL RDW Std Deviation (28.0-62.0) fl RDW Coeff of [place] (11.0-15.0) % Plt Count (150-400) K/uL MPV (7.40-12.00) fL Neut % (Auto) (48.0-80.0) % Lymph % (Auto) (16.0-40.0) % [place] % (Auto) (0.0-15.0) % Eos % (Auto) (0.0-7.0) % Baso % (Auto) (0.0-1.5) % Neut # (Auto) (1.4-5.7) K/uL Lymph # (Auto) (0.6-2.4) K/uL [place] # (Auto) (0.0-0.8) K/uL Eos # (Auto) (0.0-0.7) K/uL Baso # (Auto) (0.0-0.1) K/uL Nucleated RBC % /100WBC Nucleated RBCs # K/uL Absolute Retic (20-80) K/uL Percent Retic (0.5-1.5) % Immature Retic Fraction % INR APTT (18.6-31.3) SEC Sodium (136-148) mmol/L Potassium (3.5-5.1) mmol/L Chloride (98-107) mmol/L Carbon Dioxide (21.0-32.0) mmol/L BUN (7.0-18.0) mg/dL Creatinine (0.8-1.3) mg/dL Est Cr Clr Drug Dosing mL/min Estimated GFR (MDRD) ml/min Glucose (74-106) mg/dL Calcium (8.5-10.1) mg/dL Iron (50-175) ug/dL Transferrin Ferritin (26-388) ng/mL Total Bilirubin (0.2-1.0) mg/dL AST (15-37) IU/L ALT (14-63) IU/L Alkaline Phosphatase (46-116) U/L Troponin I (0.000-0.056) ng/mL Total Protein (6.4-8.2) g/dL Albumin (3.4-5.0) g/dL Globulin (2.6-4.0) g/dL Albumin/Globulin Ratio (0.9-1.6) Urine Color YELLOW Urine Appearance CLEAR Urine pH 6.0 (5.0-8.0) Ur Specific [place] 1.020 (1.001-1.035) Urine Protein NEGATIVE (NEGATIVE) mg/dL Urine Glucose (UA) NEGATIVE (NEGATIVE) mg/dL Urine Ketones NEGATIVE (NEGATIVE) mg/dL Urine Occult Blood TRACE-INTACT H (NEGATIVE) Urine Nitrite NEGATIVE (NEGATIVE) Urine Bilirubin NEGATIVE (NEGATIVE) Urine Urobilinogen 0.2 (<2.0) EU/dL Ur Leukocyte Esterase NEGATIVE (NEGATIVE) Urine RBC 0-2 (0-2/HPF) Urine WBC NONE SEEN (0-5/HPF) Ur Epithelial Cells RARE (NONE-FEW) Urine Bacteria NOT SEEN (NEGATIVE) COVID-19 (BRYCE) NEGATIVE (NEGATIVE) Blood Type A POSITIVE Antibody Screen NEGATIVE Crossmatch See Detail 08/12/19 08/12/19 08/12/19 Range/Units 19:01 19:01 19:01 WBC 7.53 (4.0-11.0) K/uL RBC 3.03 L 3.01 L (4.50-5.90) M/uL Hgb 8.8 L (13.0-17.0) g/dL Hct 27.2 L (38.0-50.0) % MCV 89.8 (80.0-98.0) fL MCH 29.0 (27.0-32.0) pg MCHC 32.4 (31.0-37.0) g/dL RDW Std Deviation 44.7 (28.0-62.0) fl RDW Coeff of [place] 14 (11.0-15.0) % Plt Count 251 (150-400) K/uL MPV 8.90 (7.40-12.00) fL Neut % (Auto) 59.9 (48.0-80.0) % Lymph % (Auto) 27.2 (16.0-40.0) % [place] % (Auto) 9.3 (0.0-15.0) % Eos % (Auto) 3.5 (0.0-7.0) % Baso % (Auto) 0.1 (0.0-1.5) % Neut # (Auto) 4.5 (1.4-5.7) K/uL Lymph # (Auto) 2.1 (0.6-2.4) K/uL [place] # (Auto) 0.7 (0.0-0.8) K/uL Eos # (Auto) 0.3 (0.0-0.7) K/uL Baso # (Auto) 0.0 (0.0-0.1) K/uL Nucleated RBC % 0.0 /100WBC Nucleated RBCs # 0 K/uL Absolute Retic 102.00 H (20-80) K/uL Percent Retic 3.4 H (0.5-1.5) % Immature Retic Fraction 22 % INR APTT (18.6-31.3) SEC Sodium (136-148) mmol/L Potassium (3.5-5.1) mmol/L Chloride (98-107) mmol/L Carbon Dioxide (21.0-32.0) mmol/L BUN (7.0-18.0) mg/dL Creatinine (0.8-1.3) mg/dL Est Cr Clr Drug Dosing mL/min Estimated GFR (MDRD) ml/min Glucose (74-106) mg/dL Calcium (8.5-10.1) mg/dL Iron 50 (50-175) ug/dL Transferrin 270 Ferritin 67 (26-388) ng/mL Total Bilirubin (0.2-1.0) mg/dL AST (15-37) IU/L ALT (14-63) IU/L Alkaline Phosphatase (46-116) U/L Troponin I (0.000-0.056) ng/mL Total Protein (6.4-8.2) g/dL Albumin (3.4-5.0) g/dL Globulin (2.6-4.0) g/dL Albumin/Globulin Ratio (0.9-1.6) Urine Color Urine Appearance Urine pH (5.0-8.0) Ur Specific [place] (1.001-1.035) Urine Protein (NEGATIVE) mg/dL Urine Glucose (UA) (NEGATIVE) mg/dL Urine Ketones (NEGATIVE) mg/dL Urine Occult Blood (NEGATIVE) Urine Nitrite (NEGATIVE) Urine Bilirubin (NEGATIVE) Urine Urobilinogen (<2.0) EU/dL Ur Leukocyte Esterase (NEGATIVE) Urine RBC (0-2/HPF) Urine WBC (0-5/HPF) Ur Epithelial Cells (NONE-FEW) Urine Bacteria (NEGATIVE) COVID-19 (BRYCE) (NEGATIVE) Blood Type Antibody Screen Crossmatch 08/13/19 08/13/19 Range/Units 05:48 05:48 WBC 4.14 (4.0-11.0) K/uL RBC 2.74 L (4.50-5.90) M/uL Hgb 7.8 L (13.0-17.0) g/dL Hct 24.6 L (38.0-50.0) % MCV 89.8 (80.0-98.0) fL MCH 28.5 (27.0-32.0) pg MCHC 31.7 (31.0-37.0) g/dL RDW Std Deviation 44.3 (28.0-62.0) fl RDW Coeff of [place]herelle 14 (11.0-15.0) % Plt Count 206 (150-400) K/uL MPV 9.40 (7.40-12.00) fL Neut % (Auto) 56.8 (48.0-80.0) % Lymph % (Auto) 29.0 (16.0-40.0) % [place] % (Auto) 9.9 (0.0-15.0) % Eos % (Auto) 4.1 (0.0-7.0) % Baso % (Auto) 0.2 (0.0-1.5) % Neut # (Auto) 2.4 (1.4-5.7) K/uL Lymph # (Auto) 1.2 (0.6-2.4) K/uL [place] # (Auto) 0.4 (0.0-0.8) K/uL Eos # (Auto) 0.2 (0.0-0.7) K/uL Baso # (Auto) 0.0 (0.0-0.1) K/uL Nucleated RBC % 0.0 /100WBC Nucleated RBCs # 0 K/uL Absolute Retic (20-80) K/uL Percent Retic (0.5-1.5) % Immature Retic Fraction % INR APTT (18.6-31.3) SEC Sodium 141 (136-148) mmol/L Potassium 5.9 H (3.5-5.1) mmol/L Chloride 113 H (98-107) mmol/L Carbon Dioxide 20.2 L (21.0-32.0) mmol/L BUN 39 H (7.0-18.0) mg/dL Creatinine 3.1 H (0.8-1.3) mg/dL Est Cr Clr Drug Dosing 24.34 mL/min Estimated GFR (MDRD) 20.0 ml/min Glucose 92 (74-106) mg/dL Calcium 7.9 L (8.5-10.1) mg/dL Iron (50-175) ug/dL Transferrin Ferritin (26-388) ng/mL Total Bilirubin (0.2-1.0) mg/dL AST (15-37) IU/L ALT (14-63) IU/L Alkaline Phosphatase (46-116) U/L Troponin I (0.000-0.056) ng/mL Total Protein (6.4-8.2) g/dL Albumin (3.4-5.0) g/dL Globulin (2.6-4.0) g/dL Albumin/Globulin Ratio (0.9-1.6) Urine Color Urine Appearance Urine pH (5.0-8.0) Ur Specific [place] (1.001-1.035) Urine Protein (NEGATIVE) mg/dL Urine Glucose (UA) (NEGATIVE) mg/dL Urine Ketones (NEGATIVE) mg/dL Urine Occult Blood (NEGATIVE) Urine Nitrite (NEGATIVE) Urine Bilirubin (NEGATIVE) Urine Urobilinogen (<2.0) EU/dL Ur Leukocyte Esterase (NEGATIVE) Urine RBC (0-2/HPF) Urine WBC (0-5/HPF) Ur Epithelial Cells (NONE-FEW) Urine Bacteria (NEGATIVE) COVID-19 (BRYCE) (NEGATIVE) Blood Type Antibody Screen Crossmatch Med Orders - Current: Current Medications Pantoprazole Sodium 40 mg/ (Sodium Chloride) 10 mls @ 300 mls/hr IV Q12H [facility] Last Admin: 08/13/19 04:11 Dose: 300 mls/hr Documented by: Sodium Chloride (Normal Saline) 1,000 mls @ 125 mls/hr IV ASDIRECTED [facility]ISSAEL Last Admin: 08/13/19 02:48 Dose: 125 mls/hr Documented by: Ondansetron HCl (Zofran) 4 mg IVPUSH Q4H PRN PRN Reason: Nausea Sodium Chloride (Saline Flush) 10 ml FLUSH ASDIRECTED PRN PRN Reason: Keep Vein Open Last Admin: 08/12/19 13:45 Dose: 10 ml Documented by: Sodium Chloride (Saline Flush) 2.5 ml FLUSH ASDIRECTED PRN PRN Reason: Keep Vein Open Last Admin: 08/12/19 13:44 Dose: 2.5 ml Documented by: Discontinued Medications Sodium Chloride (Normal Saline) 1,000 mls @ 999 mls/hr IV .Bolus ONE Stop: 08/12/19 14:24 Last Admin: 08/12/19 13:44 Dose: 999 mls/hr Documented by: Sodium Chloride (Normal Saline) 1,000 mls @ 999 mls/hr IV .Bolus ONE Stop: 08/12/19 14:45 Last Admin: 08/12/19 13:51 Dose: 999 mls/hr Documented by: - Exam General: Alert, Oriented Neck: Supple Lungs: Clear to Auscultation, Normal Respiratory Effort Cardiovascular: Regular Rate, Regular Rhythm Extremities: Non-Tender, No Pedal Edema Skin: Warm, Dry, Intact Neurological: No New Focal Deficit Sepsis Event Note - Evaluation Sepsis Screening Result: No Definite Risk - Focused Exam Vital Signs: Vital Signs Temp Pulse Resp BP Pulse Ox 08/13/19 07:50 36.7 C 71 18 128/63 97 08/13/19 04:37 36.5 C 66 18 119/59 L 97 08/12/19 23:00 36.4 C 60 17 113/55 L 95 Date Exam was Performed: 08/13/19 Time Exam was Performed: 09:52 - Problem List Review Problem List Initiated/Reviewed/Updated: Yes - My Orders Last 24 Hours: My Active Orders 08/12/19 17:00 Pantoprazole [ProTONIX IV] 40 mg Sodium Chloride 0.9% [Normal Saline] 10 ml IV Q12H Sodium Chloride 0.9% [Normal Saline] 1,000 ml IV ASDIRECTED 08/12/19 18:42 Oxygen Therapy [RC] PRN Up ad Zulema [RC] ASDIRECTED VTE/DVT Education [RC] PER UNIT ROUTINE Vital Signs [RC] Q4H Ondansetron [Zofran] 4 mg IVPUSH Q4H PRN Resuscitation Status Routine 08/12/19 18:43 Antiembolic Devices [RC] PER UNIT ROUTINE Sequential Compression Device [OM.PC] Per Unit Routine 08/12/19 18:54 Consult to Physician [CONS] Routine 08/12/19 18:55 Notify Provider Consults [RC] ASDIRECTED 08/12/19 20:16 Telemetry Monitoring [Cardiac Monitoring] [RC] Q8H 08/13/19 09:39 Transfuse Red Blood Cells [COMM] Routine 08/13/19 09:40 RED BLOOD CELLS LP [BBK] Routine 08/13/19 16:00 BMP [BASIC METABOLIC PANEL,BMP] [CHEM] Routine 08/14/19 05:11 BASIC METABOLIC PANEL,BMP [CHEM] AM CBC WITH AUTO DIFF [HEME] AM - Plan Plan:: 68 yo male admitted for acute GI bleed likely 2/2 to recent polypectomy. GI bleed: holding lovenox, Hgb 7.8, will transfuse two units. continue Protonix Dr. Davila has been consulted. acute on chronic kidney disease: creatinine improve to 3.1, avoiding nephrotoxic medications.
--- NOTE | 2019-08-13 15:46 | PCM.SURGPN ---
- General Info Date of Service: 08/13/19 Functional Status: Reports: Pain Controlled - Review of Systems General: Reports: No Symptoms (felt much better with sbp in the 110 after fluid resuscitation; denied chestpain/syncope) - Patient Data Vitals - Most Recent: Last Vital Signs Temp 97.5 F 08/13/19 15:32 Pulse 60 08/13/19 15:32 Resp 20 08/13/19 15:32 BP 128/65 08/13/19 15:32 Pulse Ox 99 08/13/19 15:32 Weight - Most Recent: 219 lb 8 oz I&O - Last 24 Hours: Intake & Output 08/13/19 08/13/19 08/13/19 06:59 14:59 22:59 Intake Total 1528 151 212 Output Total 900 Balance 628 151 212 Lab Results Last 24 Hrs: Laboratory Results - last 24 hr 08/12/19 08/12/19 08/12/19 Range/Units 13:40 16:01 16:11 WBC (4.0-11.0) K/uL RBC (4.50-5.90) M/uL Hgb (13.0-17.0) g/dL Hct (38.0-50.0) % MCV (80.0-98.0) fL MCH (27.0-32.0) pg MCHC (31.0-37.0) g/dL RDW Std Deviation (28.0-62.0) fl RDW Coeff of [place] (11.0-15.0) % Plt Count (150-400) K/uL MPV (7.40-12.00) fL Neut % (Auto) (48.0-80.0) % Lymph % (Auto) (16.0-40.0) % [place] % (Auto) (0.0-15.0) % Eos % (Auto) (0.0-7.0) % Baso % (Auto) (0.0-1.5) % Neut # (Auto) (1.4-5.7) K/uL Lymph # (Auto) (0.6-2.4) K/uL [place] # (Auto) (0.0-0.8) K/uL Eos # (Auto) (0.0-0.7) K/uL Baso # (Auto) (0.0-0.1) K/uL Nucleated RBC % /100WBC Nucleated RBCs # K/uL Absolute Retic (20-80) K/uL Percent Retic (0.5-1.5) % Immature Retic Fraction % Sodium (136-148) mmol/L Potassium (3.5-5.1) mmol/L Chloride (98-107) mmol/L Carbon Dioxide (21.0-32.0) mmol/L BUN (7.0-18.0) mg/dL Creatinine (0.8-1.3) mg/dL Est Cr Clr Drug Dosing mL/min Estimated GFR (MDRD) ml/min Glucose (74-106) mg/dL Calcium (8.5-10.1) mg/dL Iron (50-175) ug/dL Transferrin Ferritin (26-388) ng/mL Urine Color YELLOW Urine Appearance CLEAR Urine pH 6.0 (5.0-8.0) Ur Specific [place] 1.020 (1.001-1.035) Urine Protein NEGATIVE (NEGATIVE) mg/dL Urine Glucose (UA) NEGATIVE (NEGATIVE) mg/dL Urine Ketones NEGATIVE (NEGATIVE) mg/dL Urine Occult Blood TRACE-INTACT H (NEGATIVE) Urine Nitrite NEGATIVE (NEGATIVE) Urine Bilirubin NEGATIVE (NEGATIVE) Urine Urobilinogen 0.2 (<2.0) EU/dL Ur Leukocyte Esterase NEGATIVE (NEGATIVE) Urine RBC 0-2 (0-2/HPF) Urine WBC NONE SEEN (0-5/HPF) Ur Epithelial Cells RARE (NONE-FEW) Urine Bacteria NOT SEEN (NEGATIVE) COVID-19 (BRYCE) NEGATIVE (NEGATIVE) Blood Type A POSITIVE Antibody Screen NEGATIVE Crossmatch See Detail 08/12/19 08/12/19 08/12/19 Range/Units 19:01 19:01 19:01 WBC 7.53 (4.0-11.0) K/uL RBC 3.03 L 3.01 L (4.50-5.90) M/uL Hgb 8.8 L (13.0-17.0) g/dL Hct 27.2 L (38.0-50.0) % MCV 89.8 (80.0-98.0) fL MCH 29.0 (27.0-32.0) pg MCHC 32.4 (31.0-37.0) g/dL RDW Std Deviation 44.7 (28.0-62.0) fl RDW Coeff of [place] 14 (11.0-15.0) % Plt Count 251 (150-400) K/uL MPV 8.90 (7.40-12.00) fL Neut % (Auto) 59.9 (48.0-80.0) % Lymph % (Auto) 27.2 (16.0-40.0) % [place] % (Auto) 9.3 (0.0-15.0) % Eos % (Auto) 3.5 (0.0-7.0) % Baso % (Auto) 0.1 (0.0-1.5) % Neut # (Auto) 4.5 (1.4-5.7) K/uL Lymph # (Auto) 2.1 (0.6-2.4) K/uL [place] # (Auto) 0.7 (0.0-0.8) K/uL Eos # (Auto) 0.3 (0.0-0.7) K/uL Baso # (Auto) 0.0 (0.0-0.1) K/uL Nucleated RBC % 0.0 /100WBC Nucleated RBCs # 0 K/uL Absolute Retic 102.00 H (20-80) K/uL Percent Retic 3.4 H (0.5-1.5) % Immature Retic Fraction 22 % Sodium (136-148) mmol/L Potassium (3.5-5.1) mmol/L Chloride (98-107) mmol/L Carbon Dioxide (21.0-32.0) mmol/L BUN (7.0-18.0) mg/dL Creatinine (0.8-1.3) mg/dL Est Cr Clr Drug Dosing mL/min Estimated GFR (MDRD) ml/min Glucose (74-106) mg/dL Calcium (8.5-10.1) mg/dL Iron 50 (50-175) ug/dL Transferrin 270 Ferritin 67 (26-388) ng/mL Urine Color Urine Appearance Urine pH (5.0-8.0) Ur Specific [place] (1.001-1.035) Urine Protein (NEGATIVE) mg/dL Urine Glucose (UA) (NEGATIVE) mg/dL Urine Ketones (NEGATIVE) mg/dL Urine Occult Blood (NEGATIVE) Urine Nitrite (NEGATIVE) Urine Bilirubin (NEGATIVE) Urine Urobilinogen (<2.0) EU/dL Ur Leukocyte Esterase (NEGATIVE) Urine RBC (0-2/HPF) Urine WBC (0-5/HPF) Ur Epithelial Cells (NONE-FEW) Urine Bacteria (NEGATIVE) COVID-19 (BRYCE) (NEGATIVE) Blood Type Antibody Screen Crossmatch 08/13/19 08/13/19 Range/Units 05:48 05:48 WBC 4.14 (4.0-11.0) K/uL RBC 2.74 L (4.50-5.90) M/uL Hgb 7.8 L (13.0-17.0) g/dL Hct 24.6 L (38.0-50.0) % MCV 89.8 (80.0-98.0) fL MCH 28.5 (27.0-32.0) pg MCHC 31.7 (31.0-37.0) g/dL RDW Std Deviation 44.3 (28.0-62.0) fl RDW Coeff of [place] 14 (11.0-15.0) % Plt Count 206 (150-400) K/uL MPV 9.40 (7.40-12.00) fL Neut % (Auto) 56.8 (48.0-80.0) % Lymph % (Auto) 29.0 (16.0-40.0) % [place] % (Auto) 9.9 (0.0-15.0) % Eos % (Auto) 4.1 (0.0-7.0) % Baso % (Auto) 0.2 (0.0-1.5) % Neut # (Auto) 2.4 (1.4-5.7) K/uL Lymph # (Auto) 1.2 (0.6-2.4) K/uL [place] # (Auto) 0.4 (0.0-0.8) K/uL Eos # (Auto) 0.2 (0.0-0.7) K/uL Baso # (Auto) 0.0 (0.0-0.1) K/uL Nucleated RBC % 0.0 /100WBC Nucleated RBCs # 0 K/uL Absolute Retic (20-80) K/uL Percent Retic (0.5-1.5) % Immature Retic Fraction % Sodium 141 (136-148) mmol/L Potassium 5.9 H (3.5-5.1) mmol/L Chloride 113 H (98-107) mmol/L Carbon Dioxide 20.2 L (21.0-32.0) mmol/L BUN 39 H (7.0-18.0) mg/dL Creatinine 3.1 H (0.8-1.3) mg/dL Est Cr Clr Drug Dosing 24.34 mL/min Estimated GFR (MDRD) 20.0 ml/min Glucose 92 (74-106) mg/dL Calcium 7.9 L (8.5-10.1) mg/dL Iron (50-175) ug/dL Transferrin Ferritin (26-388) ng/mL Urine Color Urine Appearance Urine pH (5.0-8.0) Ur Specific [place] (1.001-1.035) Urine Protein (NEGATIVE) mg/dL Urine Glucose (UA) (NEGATIVE) mg/dL Urine Ketones (NEGATIVE) mg/dL Urine Occult Blood (NEGATIVE) Urine Nitrite (NEGATIVE) Urine Bilirubin (NEGATIVE) Urine Urobilinogen (<2.0) EU/dL Ur Leukocyte Esterase (NEGATIVE) Urine RBC (0-2/HPF) Urine WBC (0-5/HPF) Ur Epithelial Cells (NONE-FEW) Urine Bacteria (NEGATIVE) COVID-19 (BRYCE) (NEGATIVE) Blood Type Antibody Screen Crossmatch Med Orders - Current: Current Medications Pantoprazole Sodium 40 mg/ (Sodium Chloride) 10 mls @ 300 mls/hr IV Q12H [facility] Last Admin: 08/13/19 04:11 Dose: 300 mls/hr Documented by: Sodium Chloride (Normal Saline) 1,000 mls @ 125 mls/hr IV ASDIRECTED [facility] Last Admin: 08/13/19 11:37 Dose: 125 mls/hr Documented by: Ondansetron HCl (Zofran) 4 mg IVPUSH Q4H PRN PRN Reason: Nausea Sodium Chloride (Saline Flush) 10 ml FLUSH ASDIRECTED PRN PRN Reason: Keep Vein Open Last Admin: 08/12/19 13:45 Dose: 10 ml Documented by: Sodium Chloride (Saline Flush) 2.5 ml FLUSH ASDIRECTED PRN PRN Reason: Keep Vein Open Last Admin: 08/12/19 13:44 Dose: 2.5 ml Documented by: Discontinued Medications Sodium Chloride (Normal Saline) 1,000 mls @ 999 mls/hr IV .Bolus ONE Stop: 08/12/19 14:24 Last Admin: 08/12/19 13:44 Dose: 999 mls/hr Documented by: Sodium Chloride (Normal Saline) 1,000 mls @ 999 mls/hr IV .Bolus ONE Stop: 08/12/19 14:45 Last Admin: 08/12/19 13:51 Dose: 999 mls/hr Documented by: - Exam General: Alert, Oriented GI/Abdominal Exam: Soft, Non-Tender, No Distention Sepsis Event Note - Evaluation Sepsis Screening Result: No Definite Risk - Focused Exam Vital Signs: Vital Signs Temp Temp Pulse Resp BP Pulse Ox 08/13/19 15:32 97.5 F 60 20 128/65 99 08/13/19 15:17 97.5 F 59 L 20 133/68 100 08/13/19 15:07 97.6 F 61 20 128/53 L 98 08/13/19 12:30 97.3 F 60 18 139/65 96 08/13/19 12:04 97.0 F 62 17 141/66 H 97 08/13/19 11:49 97.1 F 63 18 130/64 99 08/13/19 11:15 97.3 F 61 17 120/60 98 08/13/19 07:50 98.1 F 71 18 128/63 97 08/13/19 04:37 97.7 F 66 18 119/59 L 97 Date Exam was Performed: 08/13/19 Time Exam was Performed: 15:42 - Problem List Review Problem List Initiated/Reviewed/Updated: Yes - My Orders Last 24 Hours: Active Orders 24 hr Category Date Time Status Patient Status [ADT] Routine ADT 08/12/19 15:08 Active Antiembolic Devices [RC] PER UNIT ROUTINE Care 08/12/19 18:43 Active Notify Provider Consults [RC] ASDIRECTED Care 08/12/19 18:55 Active Oxygen Therapy [RC] PRN Care 08/12/19 18:42 Active Telemetry Monitoring [Cardiac Monitoring] [RC] Q8H Care 08/12/19 20:16 Active Up ad Zulema [RC] ASDIRECTED Care 08/12/19 18:42 Active VTE/DVT Education [RC] PER UNIT ROUTINE Care 08/12/19 18:42 Active Vital Signs [RC] Q4H Care 08/12/19 18:42 Active Consult to Physician [CONS] Routine Cons 08/12/19 18:54 Active Regular Diet [DIET] Diet 08/13/19 Breakfast Active BASIC METABOLIC PANEL,BMP [CHEM] AM Lab 08/14/19 05:11 Ordered BMP [BASIC METABOLIC PANEL,BMP] [CHEM] Routine Lab 08/13/19 16:00 Ordered CBC WITH AUTO DIFF [HEME] AM Lab 08/14/19 05:11 Ordered Ondansetron [Zofran] Med 08/12/19 18:42 Active 4 mg IVPUSH Q4H PRN Pantoprazole [ProTONIX IV] 40 mg Med 08/12/19 17:00 Active Sodium Chloride 0.9% [Normal Saline] 10 ml IV Q12H Sodium Chloride 0.9% [Normal Saline] 1,000 ml Med 08/12/19 17:00 Active IV ASDIRECTED Sequential Compression Device [OM.PC] Per Unit Routine Oth 08/12/19 18:43 Ordered Transfuse Red Blood Cells [COMM] Routine Oth 08/13/19 09:39 Ordered Resuscitation Status Routine Resus Stat 08/12/19 18:42 Ordered Medication Orders Pantoprazole Sodium 40 mg/ (Sodium Chloride) 10 mls @ 300 mls/hr IV Q12H [facility] Last Admin: 08/13/19 04:11 Dose: 300 mls/hr Documented by: Infusion: 08/12/19 18:32 Dose: 300 mls/hr Documented by: Admin: 08/12/19 18:30 Dose: 300 mls/hr Documented by: ROMARIO Sodium Chloride (Normal Saline) 1,000 mls @ 125 mls/hr IV ASDIRECTED MISSAEL Last Admin: 08/13/19 11:37 Dose: 125 mls/hr Documented by: Infusion: 08/13/19 10:48 Dose: 125 mls/hr Documented by: Admin: 08/13/19 02:48 Dose: 125 mls/hr Documented by: Infusion: 08/13/19 02:00 Dose: 125 mls/hr Documented by: Admin: 08/12/19 18:00 Dose: 125 mls/hr Documented by: ROMARIO Ondansetron HCl (Zofran) 4 mg IVPUSH Q4H PRN PRN Reason: Nausea Sodium Chloride (Saline Flush) 10 ml FLUSH ASDIRECTED PRN PRN Reason: Keep Vein Open Last Admin: 08/12/19 13:45 Dose: 10 ml Documented by: MILTON Sodium Chloride (Saline Flush) 2.5 ml FLUSH ASDIRECTED PRN PRN Reason: Keep Vein Open Last Admin: 08/12/19 13:44 Dose: 2.5 ml Documented by: MILTON - Assessment Assessment (Free Text/Narrative):: 8.3 and 7.8 likely dilutional; gib protocol, txf to h/h 10, and monitor urine output; wt pt daily, regular diet; recheck h/h q12; will follow pt w you - Plan Plan (Free Text/Narrative):: 8.3 and 7.8 likely dilutional; gib protocol, txf to h/h 10, and monitor urine output; wt pt daily, regular diet; recheck h/h q12; will follow pt w you
[2019-08-13 16:32] LABS: CARBON DIOXIDE,CO2 20.9 mmol/L (21.0-32.0); POTASSIUM,K 5.7 mmol/L (3.5-5.1)
[2019-08-14] MEDS: Sodium Chloride 0.9% 1,000 ML IV SCH ×3 (03:05→20:45)
[2019-08-14] MEDS: Pantoprazole 40 MG in Sodium Chloride 0.9% 10 ML IV SCH ×2 (04:42→17:42)
[2019-08-14 07:13] LABS: CARBON DIOXIDE,CO2 20.6 mmol/L (21.0-32.0); POTASSIUM,K 5.8 mmol/L (3.5-5.1)
--- NOTE | 2019-08-14 09:25 | PCM.SURGPN ---
- General Info Date of Service: 08/14/19 - Review of Systems General: Reports: No Symptoms (no co, sonja po, no headache/chestpain/syncope; last BM was normal) - Patient Data Vitals - Most Recent: Last Vital Signs Temp 97.7 F 08/14/19 07:40 Pulse 62 08/14/19 07:40 Resp 16 08/14/19 07:40 BP 157/85 H 08/14/19 07:40 Pulse Ox 93 L 08/14/19 07:40 Weight - Most Recent: 219 lb 8 oz I&O - Last 24 Hours: Intake & Output 08/13/19 08/14/19 08/14/19 22:59 06:59 14:59 Intake Total 1109 2509 Output Total 1350 700 Balance -241 1809 Lab Results Last 24 Hrs: Laboratory Results - last 24 hr 08/12/19 08/13/19 08/13/19 Range/Units 13:40 16:05 20:45 WBC (4.0-11.0) K/uL RBC (4.50-5.90) M/uL Hgb 11.1 L (13.0-17.0) g/dL Hct 33.8 L (38.0-50.0) % MCV (80.0-98.0) fL MCH (27.0-32.0) pg MCHC (31.0-37.0) g/dL RDW Std Deviation (28.0-62.0) fl RDW Coeff of Cherelle (11.0-15.0) % Plt Count (150-400) K/uL MPV (7.40-12.00) fL Neut % (Auto) (48.0-80.0) % Lymph % (Auto) (16.0-40.0) % Harvey % (Auto) (0.0-15.0) % Eos % (Auto) (0.0-7.0) % Baso % (Auto) (0.0-1.5) % Neut # (Auto) (1.4-5.7) K/uL Lymph # (Auto) (0.6-2.4) K/uL Harvey # (Auto) (0.0-0.8) K/uL Eos # (Auto) (0.0-0.7) K/uL Baso # (Auto) (0.0-0.1) K/uL Nucleated RBC % /100WBC Nucleated RBCs # K/uL Sodium 141 (136-148) mmol/L Potassium 5.7 H (3.5-5.1) mmol/L Chloride 112 H (98-107) mmol/L Carbon Dioxide 20.9 L (21.0-32.0) mmol/L BUN 34 H (7.0-18.0) mg/dL Creatinine 2.8 H (0.8-1.3) mg/dL Est Cr Clr Drug Dosing 26.94 mL/min Estimated GFR (MDRD) 22.5 ml/min Glucose 87 (74-106) mg/dL Calcium 8.3 L (8.5-10.1) mg/dL Blood Type A POSITIVE Antibody Screen NEGATIVE Crossmatch See Detail 08/14/19 08/14/19 Range/Units 06:27 06:27 WBC 4.79 (4.0-11.0) K/uL RBC 3.34 L (4.50-5.90) M/uL Hgb 9.9 L (13.0-17.0) g/dL Hct 29.9 L (38.0-50.0) % MCV 89.5 (80.0-98.0) fL MCH 29.6 (27.0-32.0) pg MCHC 33.1 (31.0-37.0) g/dL RDW Std Deviation 46.0 (28.0-62.0) fl RDW Coeff of Cherelle 14 (11.0-15.0) % Plt Count 196 (150-400) K/uL MPV 9.10 (7.40-12.00) fL Neut % (Auto) 55.8 (48.0-80.0) % Lymph % (Auto) 31.1 (16.0-40.0) % Harvey % (Auto) 8.1 (0.0-15.0) % Eos % (Auto) 4.8 (0.0-7.0) % Baso % (Auto) 0.2 (0.0-1.5) % Neut # (Auto) 2.7 (1.4-5.7) K/uL Lymph # (Auto) 1.5 (0.6-2.4) K/uL Harvey # (Auto) 0.4 (0.0-0.8) K/uL Eos # (Auto) 0.2 (0.0-0.7) K/uL Baso # (Auto) 0.0 (0.0-0.1) K/uL Nucleated RBC % 0.0 /100WBC Nucleated RBCs # 0 K/uL Sodium 141 (136-148) mmol/L Potassium 5.8 H (3.5-5.1) mmol/L Chloride 113 H (98-107) mmol/L Carbon Dioxide 20.6 L (21.0-32.0) mmol/L BUN 31 H (7.0-18.0) mg/dL Creatinine 2.5 H (0.8-1.3) mg/dL Est Cr Clr Drug Dosing 30.18 mL/min Estimated GFR (MDRD) 25.7 ml/min Glucose 83 (74-106) mg/dL Calcium 8.3 L (8.5-10.1) mg/dL Blood Type Antibody Screen Crossmatch Med Orders - Current: Current Medications Pantoprazole Sodium 40 mg/ (Sodium Chloride) 10 mls @ 300 mls/hr IV Q12H [facility] Last Admin: 08/14/19 04:42 Dose: 300 mls/hr Documented by: Sodium Chloride (Normal Saline) 1,000 mls @ 125 mls/hr IV ASDIRECTED [facility] Last Admin: 08/14/19 03:05 Dose: 125 mls/hr Documented by: Ondansetron HCl (Zofran) 4 mg IVPUSH Q4H PRN PRN Reason: Nausea Sodium Chloride (Saline Flush) 10 ml FLUSH ASDIRECTED PRN PRN Reason: Keep Vein Open Last Admin: 08/12/19 13:45 Dose: 10 ml Documented by: Sodium Chloride (Saline Flush) 2.5 ml FLUSH ASDIRECTED PRN PRN Reason: Keep Vein Open Last Admin: 08/12/19 13:44 Dose: 2.5 ml Documented by: Discontinued Medications Sodium Chloride (Normal Saline) 1,000 mls @ 999 mls/hr IV .Bolus ONE Stop: 08/12/19 14:24 Last Admin: 08/12/19 13:44 Dose: 999 mls/hr Documented by: Sodium Chloride (Normal Saline) 1,000 mls @ 999 mls/hr IV .Bolus ONE Stop: 08/12/19 14:45 Last Admin: 08/12/19 13:51 Dose: 999 mls/hr Documented by: - Exam GI/Abdominal Exam: Normal Bowel Sounds, Soft, Non-Tender, No Distention Sepsis Event Note - Evaluation Sepsis Screening Result: No Definite Risk - Focused Exam Vital Signs: Vital Signs Temp Pulse Resp BP Pulse Ox 08/14/19 07:40 97.7 F 62 16 157/85 H 93 L 08/14/19 03:00 97.8 F 55 L 16 130/71 96 08/13/19 23:00 97.7 F 60 17 145/73 H 97 Date Exam was Performed: 08/14/19 Time Exam was Performed: 09:22 - Problem List Review Problem List Initiated/Reviewed/Updated: Yes - My Orders Last 24 Hours: Active Orders 24 hr Category Date Time Status Transfuse Red Blood Cells [COMM] Routine Oth 08/13/19 09:39 Ordered Medication Orders Pantoprazole Sodium 40 mg/ (Sodium Chloride) 10 mls @ 300 mls/hr IV Q12H [facility] [place] Last Admin: 08/14/19 04:42 Dose: 300 mls/hr Documented by: Infusion: 08/13/19 18:40 Dose: 300 mls/hr Documented by: Admin: 08/13/19 18:38 Dose: 300 mls/hr Documented by: Infusion: 08/13/19 04:13 Dose: 300 mls/hr Documented by: Admin: 08/13/19 04:11 Dose: 300 mls/hr Documented by: Infusion: 08/12/19 18:32 Dose: 300 mls/hr Documented by: Admin: 08/12/19 18:30 Dose: 300 mls/hr Documented by: ROMARIO Sodium Chloride (Normal Saline) 1,000 mls @ 125 mls/hr IV ASDIRECTED [facility] [place] Last Admin: 08/14/19 03:05 Dose: 125 mls/hr Documented by: Infusion: 08/13/19 19:37 Dose: 125 mls/hr Documented by: Admin: 08/13/19 11:37 Dose: 125 mls/hr Documented by: Infusion: 08/13/19 10:48 Dose: 125 mls/hr Documented by: Admin: 08/13/19 02:48 Dose: 125 mls/hr Documented by: Infusion: 08/13/19 02:00 Dose: 125 mls/hr Documented by: Admin: 08/12/19 18:00 Dose: 125 mls/hr Documented by: ROMARIO Ondansetron HCl (Zofran) 4 mg IVPUSH Q4H PRN PRN Reason: Nausea Sodium Chloride (Saline Flush) 10 ml FLUSH ASDIRECTED PRN PRN Reason: Keep Vein Open Last Admin: 08/12/19 13:45 Dose: 10 ml Documented by: MILTON Sodium Chloride (Saline Flush) 2.5 ml FLUSH ASDIRECTED PRN PRN Reason: Keep Vein Open Last Admin: 08/12/19 13:44 Dose: 2.5 ml Documented by: MILTON - Assessment Assessment (Free Text/Narrative):: continue to do good; no co, sonja po, received 2 RBC, h/h was 11 and this morning 10. inr 1.04; creatine 2.5; continue to do well - Plan Plan (Free Text/Narrative):: continue to do good; no co, sonja po, received 2 RBC, h/h was 11 and this morning 10. inr 1.04; creatine 2.5; continue to do well
--- NOTE | 2019-08-14 13:11 | PCM.PN ---
- General Info Date of Service: 08/14/19 - Review of Systems Systems Review Comment:: no blood in stool, no dizziness - Patient Data Vitals - Most Recent: Last Vital Signs Temp 36.3 C 08/14/19 11:54 Pulse 65 08/14/19 11:54 Resp 16 08/14/19 11:54 BP 146/65 H 08/14/19 11:54 Pulse Ox 97 08/14/19 11:54 Weight - Most Recent: 99.564 kg I&O - Last 24 Hours: Intake & Output 08/13/19 08/14/19 08/14/19 22:59 06:59 14:59 Intake Total 1109 2509 1000 Output Total 1350 700 Balance -241 1809 1000 Lab Results Last 24 Hours: Laboratory Results - last 24 hr 08/12/19 08/13/19 08/13/19 Range/Units 13:40 16:05 20:45 WBC (4.0-11.0) K/uL RBC (4.50-5.90) M/uL Hgb 11.1 L (13.0-17.0) g/dL Hct 33.8 L (38.0-50.0) % MCV (80.0-98.0) fL MCH (27.0-32.0) pg MCHC (31.0-37.0) g/dL RDW Std Deviation (28.0-62.0) fl RDW Coeff of Cherelle (11.0-15.0) % Plt Count (150-400) K/uL MPV (7.40-12.00) fL Neut % (Auto) (48.0-80.0) % Lymph % (Auto) (16.0-40.0) % Gallia % (Auto) (0.0-15.0) % Eos % (Auto) (0.0-7.0) % Baso % (Auto) (0.0-1.5) % Neut # (Auto) (1.4-5.7) K/uL Lymph # (Auto) (0.6-2.4) K/uL Gallia # (Auto) (0.0-0.8) K/uL Eos # (Auto) (0.0-0.7) K/uL Baso # (Auto) (0.0-0.1) K/uL Nucleated RBC % /100WBC Nucleated RBCs # K/uL Sodium 141 (136-148) mmol/L Potassium 5.7 H (3.5-5.1) mmol/L Chloride 112 H (98-107) mmol/L Carbon Dioxide 20.9 L (21.0-32.0) mmol/L BUN 34 H (7.0-18.0) mg/dL Creatinine 2.8 H (0.8-1.3) mg/dL Est Cr Clr Drug Dosing 26.94 mL/min Estimated GFR (MDRD) 22.5 ml/min Glucose 87 (74-106) mg/dL Calcium 8.3 L (8.5-10.1) mg/dL Blood Type A POSITIVE Antibody Screen NEGATIVE Crossmatch See Detail 08/14/19 08/14/19 Range/Units 06:27 06:27 WBC 4.79 (4.0-11.0) K/uL RBC 3.34 L (4.50-5.90) M/uL Hgb 9.9 L (13.0-17.0) g/dL Hct 29.9 L (38.0-50.0) % MCV 89.5 (80.0-98.0) fL MCH 29.6 (27.0-32.0) pg MCHC 33.1 (31.0-37.0) g/dL RDW Std Deviation 46.0 (28.0-62.0) fl RDW Coeff of Cherelle 14 (11.0-15.0) % Plt Count 196 (150-400) K/uL MPV 9.10 (7.40-12.00) fL Neut % (Auto) 55.8 (48.0-80.0) % Lymph % (Auto) 31.1 (16.0-40.0) % Gallia % (Auto) 8.1 (0.0-15.0) % Eos % (Auto) 4.8 (0.0-7.0) % Baso % (Auto) 0.2 (0.0-1.5) % Neut # (Auto) 2.7 (1.4-5.7) K/uL Lymph # (Auto) 1.5 (0.6-2.4) K/uL Gall[place] # (Auto) 0.4 (0.0-0.8) K/uL Eos # (Auto) 0.2 (0.0-0.7) K/uL Baso # (Auto) 0.0 (0.0-0.1) K/uL Nucleated RBC % 0.0 /100WBC Nucleated RBCs # 0 K/uL Sodium 141 (136-148) mmol/L Potassium 5.8 H (3.5-5.1) mmol/L Chloride 113 H (98-107) mmol/L Carbon Dioxide 20.6 L (21.0-32.0) mmol/L BUN 31 H (7.0-18.0) mg/dL Creatinine 2.5 H (0.8-1.3) mg/dL Est Cr Clr Drug Dosing 30.18 mL/min Estimated GFR (MDRD) 25.7 ml/min Glucose 83 (74-106) mg/dL Calcium 8.3 L (8.5-10.1) mg/dL Blood Type Antibody Screen Crossmatch Med Orders - Current: Current Medications Pantoprazole Sodium 40 mg/ (Sodium Chloride) 10 mls @ 300 mls/hr IV Q12H [facility] Last Admin: 08/14/19 04:42 Dose: 300 mls/hr Documented by: Sodium Chloride (Normal Saline) 1,000 mls @ 125 mls/hr IV ASDIRECTED [facility] Last Admin: 08/14/19 11:46 Dose: 125 mls/hr Documented by: Ondansetron HCl (Zofran) 4 mg IVPUSH Q4H PRN PRN Reason: Nausea Sodium Chloride (Saline Flush) 10 ml FLUSH ASDIRECTED PRN PRN Reason: Keep Vein Open Last Admin: 08/12/19 13:45 Dose: 10 ml Documented by: Sodium Chloride (Saline Flush) 2.5 ml FLUSH ASDIRECTED PRN PRN Reason: Keep Vein Open Last Admin: 08/12/19 13:44 Dose: 2.5 ml Documented by: Discontinued Medications Sodium Chloride (Normal Saline) 1,000 mls @ 999 mls/hr IV .Bolus ONE Stop: 08/12/19 14:24 Last Admin: 08/12/19 13:44 Dose: 999 mls/hr Documented by: Sodium Chloride (Normal Saline) 1,000 mls @ 999 mls/hr IV .Bolus ONE Stop: 08/12/19 14:45 Last Admin: 08/12/19 13:51 Dose: 999 mls/hr Documented by: - Exam General: Alert, Oriented Neck: Supple Lungs: Clear to Auscultation, Normal Respiratory Effort Cardiovascular: Regular Rate, Regular Rhythm GI/Abdominal Exam: Soft, Non-Tender Extremities: Non-Tender, Slow Capillary Refill Skin: Warm, Dry, Intact Neurological: No New Focal Deficit Sepsis Event Note - Evaluation Sepsis Screening Result: No Definite Risk - Focused Exam Vital Signs: Vital Signs Temp Pulse Resp BP Pulse Ox 08/14/19 11:54 36.3 C 65 16 146/65 H 97 08/14/19 07:40 36.5 C 62 16 157/85 H 93 L 08/14/19 03:00 36.6 C 55 L 16 130/71 96 Date Exam was Performed: 08/14/19 Time Exam was Performed: 13:09 - Problem List Review Problem List Initiated/Reviewed/Updated: Yes - My Orders Last 24 Hours: My Active Orders 08/14/19 18:00 HGB [HEMOGLOBIN] [HEME] Routine 08/15/19 05:11 BASIC METABOLIC PANEL,BMP [CHEM] AM CBC WITH AUTO DIFF [HEME] AM - Plan Plan:: 68 yo male admitted for acute GI bleed likely 2/2 to recent polypectomy. GI bleed: holding lovenox, s/p transfuse two units. Hgb 11.1 last night. This morning Hgb 9.9, continue Protonix Dr. Davila has been consulted. acute on chronic kidney disease: creatinine improve to 2.5, avoiding nephrotoxic medications. Dispo: home tomorrow if Hgb remains stable.
[2019-08-15] MEDS: Sodium Chloride 0.9% 1,000 ML IV SCH (05:24)
[2019-08-15] MEDS: Pantoprazole 40 MG in Sodium Chloride 0.9% 10 ML IV SCH (06:23)
[2019-08-15 06:27] LABS: CARBON DIOXIDE,CO2 19.9 mmol/L (21.0-32.0); POTASSIUM,K 5.3 mmol/L (3.5-5.1)
--- NOTE | 2019-08-15 10:41 | PCM.DCSUM1 ---
Discharge Summary - Discharge Data Discharge Date: 08/15/19 Discharge Disposition: Home, Self-Care 01 Condition: Good - Referral to Home Health Primary Care Physician: Hugo Childers NP - Patient Summary/Data Consults: Consultations 08/12/19 18:54 Consult to Physician [CONS] Routine Hospital Course: 68 yo male with pmh of HTN, CKD, recurrent blood clots who on August 01 underwent a repeat screening colonoscopy by Dr. Davila and had several polyps removed. Patient is on coumadin but was bridged with lovenox for the colonoscopy. He report difficulty urinating after the colonoscopy and was given a sulfa drug for UTI by the [facility]. He also reported red blood and black stool following the colonoscopy but this has stopped as of a day before admission. Rachel wilhelm was seen in Dr. Davila's clinic and was sent to the ED when he was noted to be hypotensive. IN the ED he was noted to have blood pressure in the 80s-90s systolic. He had no santos blood or stool on rectal exam but it was Hemoccult positive. His lab work up was significant for a Hgb of 8.8 and a creatinine of 3.8. PAtient was given 2 liters of normal saline with improvement in blood pressure. He was admitted to the hospital for acute GI bleed and acute on chronic renal injury. He was treated with IV fluids and his lovenox was held. His Hgb dropped to 7.8. He was transfused two units of pRBC. His Hgb remained stable at around 10 and he had no more blood in his stool. His creatinine improved to his baseline at 2.2. I discussed the risk and benefits of restarting vs continuing to hold his anticoagulation. Patient preferred to continue his anticoagulation. I instructed him to take the lovenox once a day based on his renal function. He is to resumed coumadin 7.5mg daily. Patient is to follow up Monday with the [facility] clinic. - Discharge Plan Prescriptions/Med Rec: Enoxaparin [Lovenox] 100 mg SUBCUT Q24H #5 syringe Home Medications: Home Meds Furosemide [Lasix] 40 mg PO DAILY 10/30/13 [History] Losartan [Cozaar] 100 mg PO DAILY 10/30/13 [History] Albuterol Sulfate [Proair Respiclick] 2 puff INH Q4H PRN 07/25/19 [History] amLODIPine [Norvasc] 5 mg PO DAILY 07/25/19 [History] atorvaSTATin Calcium [Atorvastatin Calcium] 80 mg PO BEDTIME 07/25/19 [History] minoxidiL [Minoxidil] 10 mg PO DAILY 07/25/19 [History] Sildenafil [Viagra] 50 mg PO .ONE HOUR PRIOR PRN 08/13/19 [History] Warfarin Sodium 7.5 mg PO DAILY 08/13/19 [History] Enoxaparin [Lovenox] 100 mg SUBCUT Q24H #5 syringe 08/15/19 [Rx] Patient Handouts: Anemia Referrals: Mervin Davila MD [Physician] - Hugo Childers NP [Primary Care Provider] - 08/22/19 12:30 pm - Discharge Summary/Plan Comment DC Time >30 min.: No - Patient Data Vitals - Most Recent: Last Vital Signs Temp 36.2 C 08/15/19 07:10 Pulse 53 L 08/15/19 07:10 Resp 14 08/15/19 07:10 BP 160/78 H 08/15/19 07:10 Pulse Ox 100 08/15/19 07:10 Weight - Most Recent: 99.564 kg I&O - Last 24 hours: Intake & Output 08/14/19 08/15/19 08/15/19 22:59 06:59 14:59 Intake Total 1050 1040 Output Total 850 0 Balance 200 1040 Lab Results - Last 24 hrs: Laboratory Results - last 24 hr 08/14/19 08/15/19 08/15/19 Range/Units 18:16 05:35 05:35 WBC 5.42 (4.0-11.0) K/uL RBC 3.35 L (4.50-5.90) M/uL Hgb 10.7 L 9.8 L (13.0-17.0) g/dL Hct 30.3 L (38.0-50.0) % MCV 90.4 (80.0-98.0) fL MCH 29.3 (27.0-32.0) pg MCHC 32.3 (31.0-37.0) g/dL RDW Std Deviation 46.0 (28.0-62.0) fl RDW Coeff of Cherelle 14 (11.0-15.0) % Plt Count 212 (150-400) K/uL MPV 9.40 (7.40-12.00) fL Neut % (Auto) 59.2 (48.0-80.0) % Lymph % (Auto) 26.6 (16.0-40.0) % Howard % (Auto) 9.2 (0.0-15.0) % Eos % (Auto) 4.8 (0.0-7.0) % Baso % (Auto) 0.2 (0.0-1.5) % Neut # (Auto) 3.2 (1.4-5.7) K/uL Lymph # (Auto) 1.4 (0.6-2.4) K/uL Howard # (Auto) 0.5 (0.0-0.8) K/uL Eos # (Auto) 0.3 (0.0-0.7) K/uL Baso # (Auto) 0.0 (0.0-0.1) K/uL Nucleated RBC % 0.0 /100WBC Nucleated RBCs # 0 K/uL Sodium 142 (136-148) mmol/L Potassium 5.3 H (3.5-5.1) mmol/L Chloride 113 H (98-107) mmol/L Carbon Dioxide 19.9 L (21.0-32.0) mmol/L BUN 29 H (7.0-18.0) mg/dL Creatinine 2.2 H (0.8-1.3) mg/dL Est Cr Clr Drug Dosing 34.29 mL/min Estimated GFR (MDRD) 29.7 ml/min Glucose 95 (74-106) mg/dL Calcium 8.3 L (8.5-10.1) mg/dL Med Orders - Current: Current Medications Pantoprazole Sodium 40 mg/ (Sodium Chloride) 10 mls @ 300 mls/hr IV Q12H [facility] Last Admin: 08/15/19 06:23 Dose: 300 mls/hr Documented by: Ondansetron HCl (Zofran) 4 mg IVPUSH Q4H PRN PRN Reason: Nausea Sodium Chloride (Saline Flush) 10 ml FLUSH ASDIRECTED PRN PRN Reason: Keep Vein Open Last Admin: 08/12/19 13:45 Dose: 10 ml Documented by: Sodium Chloride (Saline Flush) 2.5 ml FLUSH ASDIRECTED PRN PRN Reason: Keep Vein Open Last Admin: 08/12/19 13:44 Dose: 2.5 ml Documented by: Discontinued Medications Sodium Chloride (Normal Saline) 1,000 mls @ 999 mls/hr IV .Bolus ONE Stop: 08/12/19 14:24 Last Admin: 08/12/19 13:44 Dose: 999 mls/hr Documented by: Sodium Chloride (Normal Saline) 1,000 mls @ 999 mls/hr IV .Bolus ONE Stop: 08/12/19 14:45 Last Admin: 08/12/19 13:51 Dose: 999 mls/hr Documented by: Sodium Chloride (Normal Saline) 1,000 mls @ 125 mls/hr IV ASDIRECTED [facility] Last Admin: 08/15/19 05:24 Dose: 125 mls/hr Documented by:
[2019-08-15] MEDS ORDERED: Enoxaparin 100 MG/1 ML Syringe SUBCUT SCH (12:00)
== END 2019-08-15 12:15 | disposition home or self-care (01) | DRG 920 ==
LOC: MW.ED 13:21 → MW.MS 15:08 → UNDOADMOB 15:08 → MW.MS 08-14 12:52 → OBSVTOIN 08-14 13:52
PROVIDERS: ADMIT Internal Medicine; ATTEND Internal Medicine
PROC: 30233N1 Transfusion of Nonautologous Red Blood Cells into Peripheral Vein, Percutaneous Approach (ICD-10-PCS; principal; 2019-08-14)
DX: K92.1 Melena (principal); K91.840 Postprocedural hemorrhage of a digestive system organ or structure following a digestive system procedure; D62 Acute posthemorrhagic anemia; K92.2 Gastrointestinal hemorrhage, unspecified; N17.9 Acute kidney failure, unspecified; I12.9 Hypertensive chronic kidney disease with stage 1 through stage 4 chronic kidney disease, or unspecified chronic kidney disease; N18.9 Chronic kidney disease, unspecified; H54.7 Unspecified visual loss; E78.00 Pure hypercholesterolemia, unspecified; G47.30 Sleep apnea, unspecified; G89.29 Other chronic pain; M54.9 Dorsalgia, unspecified; Y83.8 Other surgical procedures as the cause of abnormal reaction of the patient, or of later complication, without mention of misadventure at the time of the procedure; Z20.828 Contact with and (suspected) exposure to other viral communicable diseases; M10.9 Gout, unspecified; M54.2 Cervicalgia; F43.10 Post-traumatic stress disorder, unspecified; Z90.49 Acquired absence of other specified parts of digestive tract; Z79.899 Other long term (current) drug therapy; Z79.01 Long term (current) use of anticoagulants; Z88.5 Allergy status to narcotic agent; Z88.6 Allergy status to analgesic agent; Z86.718 Personal history of other venous thrombosis and embolism; Z86.711 Personal history of pulmonary embolism; Z86.010 Personal history of colon polyps; Z98.890 Other specified postprocedural states; Z88.1 Allergy status to other antibiotic agents
CPT/HCPCS: 36415 ×2; 36430; 80048 ×3; 80053; 81001; 82728; 83540; 84484; 85014; 85018; 85025 ×4; 85045; 85610; 85730; 86850; 86900; 86901; 86920; 86921; 86922; 87635; 93005 ×2; 96361 ×4; 96372; 96374; 96376 ×2; 99285; C9113 ×4; G0378 ×2; J7030 ×7; J7050 ×4; P9016 ×2; 96360; 99283; J1650; U0002

== ENCOUNTER 2021-08-12 11:49 | Observation (INO) | payer OTHER ==
[2021-08-12 13:49] LABS: CARBON DIOXIDE,CO2 24.5 mmol/L (21.0-32.0); POTASSIUM,K 5.7 mmol/L (3.5-5.1)
[2021-08-12] MEDS ORDERED: Calcium Gluconate 10% 1 GM/10 ML SDV IVPUSH ONE (14:21)
[2021-08-12] MEDS ORDERED: Lactated Ringers 1,000 ML IV SCH (14:30)
[2021-08-12] MEDS ORDERED: 50% Dextrose in Water 50 ML Syringe IVPUSH ONE ×2 (14:42→16:09)
[2021-08-12] MEDS ORDERED: Insulin Regular, Human 100 Units/ML 10 ML Vial IVPUSH ONE (14:42)
[2021-08-12] MEDS ORDERED: predniSONE 20 MG Tab PO STA (14:44)
[2021-08-12] MEDS ORDERED: 50% Dextrose in Water 50 ML Syringe ONE (16:07)
[2021-08-12 18:37] LABS: CARBON DIOXIDE,CO2 24.2 mmol/L (21.0-32.0); POTASSIUM,K 5.8 mmol/L (3.5-5.1)
[2021-08-12] MEDS ORDERED: Albuterol 8 GM Inhaler INH PRN (20:13)
[2021-08-12] MEDS ORDERED: Warfarin 5 MG Tab PO ONE (20:15)
[2021-08-13 06:27] LABS: CARBON DIOXIDE,CO2 22.8 mmol/L (21.0-32.0); POTASSIUM,K 6.1 mmol/L (3.5-5.1)
[2021-08-13] MEDS ORDERED: Sodium Chloride 0.9% 500 ML IV ONE (08:34)
[2021-08-13] MEDS ORDERED: Furosemide 40 MG Tab PO SCH (09:00)
[2021-08-13] MEDS ORDERED: amLODIPine 5 MG Tab PO SCH (09:00)
[2021-08-13] MEDS ORDERED: Sodium Polystyrene Sulfonate 15 GM/60 ML Susp 60 ML Bot PO SCH (09:15)
[2021-08-13] MEDS ORDERED: Warfarin 5 MG Tab PO ONE (14:00)
[2021-08-13] MEDS ORDERED: Warfarin Sliding Scale PO SCH (14:00)
== END 2021-08-13 16:30 | disposition home or self-care (01) ==
LOC: MW.ED 11:49 → MW.MS 14:52
PROVIDERS: ADMIT Internal Medicine; ATTEND Internal Medicine
DX: N17.9 Acute kidney failure, unspecified (principal); I12.9 Hypertensive chronic kidney disease with stage 1 through stage 4 chronic kidney disease, or unspecified chronic kidney disease; N18.30 Chronic kidney disease, stage 3 unspecified; M10.9 Gout, unspecified; E78.00 Pure hypercholesterolemia, unspecified; G47.30 Sleep apnea, unspecified; M79.605 Pain in left leg; Z79.01 Long term (current) use of anticoagulants; Z79.899 Other long term (current) drug therapy; Z79.02 Long term (current) use of antithrombotics/antiplatelets; Z88.1 Allergy status to other antibiotic agents; Z88.6 Allergy status to analgesic agent; Z86.711 Personal history of pulmonary embolism; Z86.010 Personal history of colon polyps; Z87.19 Personal history of other diseases of the digestive system; Z90.49 Acquired absence of other specified parts of digestive tract; Z98.890 Other specified postprocedural states; Z86.718 Personal history of other venous thrombosis and embolism; Z20.822 Contact with and (suspected) exposure to COVID-19
CPT/HCPCS: 36415; 73610; 80048; 82947; 84132; 84550; 85025; 85610; 87635; 93005; 93971; 96361; 96374; 96375; 96376; 99285; A9270; J0610; J1815; J7030; J7120; G0378; U0002

== ENCOUNTER 2021-09-22 12:31 | Emergency (ER) | payer OTHER ==
[2021-09-22 18:50] LABS: CARBON DIOXIDE,CO2 29.3 mmol/L (21.0-32.0); POTASSIUM,K 3.9 mmol/L (3.5-5.1)
== END 2021-09-22 19:27 | disposition home or self-care (01) ==
LOC: MW.ED 12:31
DX: L03.116 Cellulitis of left lower limb (principal); M10.9 Gout, unspecified; E78.00 Pure hypercholesterolemia, unspecified; I10 Essential (primary) hypertension; Z88.1 Allergy status to other antibiotic agents; Z88.8 Allergy status to other drugs, medicaments and biological substances; Z79.899 Other long term (current) drug therapy; Z79.01 Long term (current) use of anticoagulants
CPT/HCPCS: 36415; 73620-26-LT; 73620-LT; 80048; 84550; 85025; 99283

== ENCOUNTER 2023-08-11 11:58 | Inpatient (IN) | payer OTHER ==
[2023-08-11 13:04] LABS: BASOPHILS ABSOLUTE AUTO 0.02 K/uL (0.00-0.20); BASOPHILS PERCENT AUTO 0.3 % (0.0-1.0); EOSINOPHILS ABSOLUTE AUTO 0.14 K/uL (0.00-0.45); EOSINOPHILS PERCENT AUTO 1.8 % (0.0-6.0); HEMATOCRIT 33.6 % (42.0-52.0); HEMOGLOBIN 11.3 g/dL (14.0-18.0); IMMATURE GRAN ABSOLUTE AUTO 0.02 K/uL (0.00-0.05); IMMATURE GRAN PERCENT AUTO 0.3 % (0.0-0.4); LYMPHOCYTES ABSOLUTE AUTO 1.44 K/uL (1.00-4.80); LYMPHOCYTES PERCENT AUTO 18.9 % (24.0-44.0); MEAN CORPUSCULAR HEMOGLOBIN 29.5 pg (28.0-32.0); MEAN CORPUSCULAR HGB CONC 33.6 g/dL (32.0-36.0); MEAN CORPUSCULAR VOLUME 87.7 fL (83.0-99.0); MEAN PLATELET VOLUME 9.1 fL (9.4-12.4); MONOCYTES ABSOLUTE AUTO 0.84 K/uL (0.00-0.80); MONOCYTES PERCENT AUTO 11.1 % (0.0-8.0); NEUTROPHILS ABSOLUTE AUTO 5.14 K/uL (1.80-7.70); NEUTROPHILS PERCENT AUTO 67.6 % (41.0-71.0); PLATELET COUNT,PLT 218 K/uL (150-400); RED BLOOD CELL COUNT 3.83 M/uL (4.52-5.90)
[2023-08-11 13:35] LABS: INR 2.19 (0.86-1.11)
[2023-08-11 14:15] LABS: BILIRUBIN TOTAL 0.7 mg/dL (0.2-1.0); CALCIUM 9.1 mg/dL (8.5-10.1); CARBON DIOXIDE,CO2 25.7 mmol/L (21.0-32.0); CREATININE 2.7 mg/dL (0.8-1.3); EST CRCL DRUG DOSING (CG) 26.35 mL/min; POTASSIUM,K 4.5 mmol/L (3.5-5.1)
[2023-08-11] MEDS ORDERED: Acetaminophen 325 MG Tab PO PRN (22:57)
[2023-08-11] MEDS ORDERED: Naloxone 0.4 MG/ML SDV IVPUSH PRN (23:00)
[2023-08-11] MEDS: Sodium Chloride 0.9% 1,000 ML IV SCH (23:57)
[2023-08-12] MEDS: Morphine 2 MG/ML SYRINGE IVPUSH PRN (04:14)
[2023-08-12 06:58] LABS: BASOPHILS ABSOLUTE AUTO 0.01 K/uL (0.00-0.20); BASOPHILS PERCENT AUTO 0.1 % (0.0-1.0); EOSINOPHILS ABSOLUTE AUTO 0.18 K/uL (0.00-0.45); EOSINOPHILS PERCENT AUTO 2.7 % (0.0-6.0); HEMATOCRIT 32.6 % (42.0-52.0); HEMOGLOBIN 10.9 g/dL (14.0-18.0); IMMATURE GRAN ABSOLUTE AUTO 0.01 K/uL (0.00-0.05); IMMATURE GRAN PERCENT AUTO 0.1 % (0.0-0.4); LYMPHOCYTES ABSOLUTE AUTO 1.81 K/uL (1.00-4.80); LYMPHOCYTES PERCENT AUTO 27.1 % (24.0-44.0); MEAN CORPUSCULAR HEMOGLOBIN 29.1 pg (28.0-32.0); MEAN CORPUSCULAR HGB CONC 33.4 g/dL (32.0-36.0); MEAN CORPUSCULAR VOLUME 86.9 fL (83.0-99.0); MEAN PLATELET VOLUME 9.3 fL (9.4-12.4); NEUTROPHILS ABSOLUTE AUTO 3.88 K/uL (1.80-7.70); PLATELET COUNT,PLT 207 K/uL (150-400); RED BLOOD CELL COUNT 3.75 M/uL (4.52-5.90); WHITE BLOOD CELL COUNT,WBC 6.69 K/uL (3.9-11.3)
[2023-08-12] MEDS: Iopamidol 755 MG/ML 500 ML Multipack Bottle IVPUSH STA (06:59)
[2023-08-12 07:35] LABS: CALCIUM 8.8 mg/dL (8.5-10.1); CARBON DIOXIDE,CO2 26.4 mmol/L (21.0-32.0); CREATININE 2.4 mg/dL (0.8-1.3); EST CRCL DRUG DOSING (CG) 29.64 mL/min; POTASSIUM,K 4.3 mmol/L (3.5-5.1)
[2023-08-12 07:47] LABS: INR 1.95 (0.86-1.11)
[2023-08-12 20:28] LABS: INR 1.68 (0.86-1.11)
[2023-08-12] MEDS ORDERED: Losartan 25 MG Tab PO SCH (21:15)
[2023-08-12] MEDS: atorvaSTATin 40 MG Tab PO SCH (21:33)
[2023-08-12] MEDS: Heparin Sodium/0.45% NaCl 500 ML IV SCH (21:34)
[2023-08-13] MEDS: oxyCODONE 5 MG Tab PO PRN (00:25)
[2023-08-13 04:25] LABS: BASOPHILS ABSOLUTE AUTO 0.02 K/uL (0.00-0.20); BASOPHILS PERCENT AUTO 0.3 % (0.0-1.0); EOSINOPHILS ABSOLUTE AUTO 0.24 K/uL (0.00-0.45); EOSINOPHILS PERCENT AUTO 3.3 % (0.0-6.0); HEMATOCRIT 30.7 % (42.0-52.0); HEMOGLOBIN 10.4 g/dL (14.0-18.0); IMMATURE GRAN ABSOLUTE AUTO 0.02 K/uL (0.00-0.05); IMMATURE GRAN PERCENT AUTO 0.3 % (0.0-0.4); LYMPHOCYTES ABSOLUTE AUTO 2.03 K/uL (1.00-4.80); LYMPHOCYTES PERCENT AUTO 28.2 % (24.0-44.0); MEAN CORPUSCULAR HEMOGLOBIN 29.5 pg (28.0-32.0); MEAN CORPUSCULAR HGB CONC 33.9 g/dL (32.0-36.0); MEAN PLATELET VOLUME 9.1 fL (9.4-12.4); MONOCYTES ABSOLUTE AUTO 0.78 K/uL (0.00-0.80); MONOCYTES PERCENT AUTO 10.8 % (0.0-8.0); NEUTROPHILS ABSOLUTE AUTO 4.11 K/uL (1.80-7.70); NEUTROPHILS PERCENT AUTO 57.1 % (41.0-71.0); PLATELET COUNT,PLT 226 K/uL (150-400); RED BLOOD CELL COUNT 3.53 M/uL (4.52-5.90)
[2023-08-13 04:44] LABS: INR 1.6 (0.86-1.11)
[2023-08-13 04:51] LABS: CALCIUM 8.8 mg/dL (8.5-10.1); CARBON DIOXIDE,CO2 24.8 mmol/L (21.0-32.0); CREATININE 2.2 mg/dL (0.8-1.3); EST CRCL DRUG DOSING (CG) 32.33 mL/min; POTASSIUM,K 4.4 mmol/L (3.5-5.1)
[2023-08-13] MEDS: Allopurinol 100 MG Tab PO SCH (09:32)
[2023-08-13] MEDS: Furosemide 80 MG Tab PO SCH (09:32)
[2023-08-13] MEDS: Losartan 50 MG Tab PO SCH (09:32)
[2023-08-13] MEDS: Heparin Sodium 5,000 Units/ML Vial IVPUSH ONE (19:50)
[2023-08-13] MEDS ORDERED: atorvaSTATin 40 MG Tab PO SCH (21:00)
[2023-08-14 08:13] LABS: BASOPHILS ABSOLUTE AUTO 0.02 K/uL (0.00-0.20); BASOPHILS PERCENT AUTO 0.3 % (0.0-1.0); EOSINOPHILS ABSOLUTE AUTO 0.14 K/uL (0.00-0.45); EOSINOPHILS PERCENT AUTO 1.9 % (0.0-6.0); HEMATOCRIT 32.1 % (42.0-52.0); HEMOGLOBIN 11.1 g/dL (14.0-18.0); IMMATURE GRAN ABSOLUTE AUTO 0.02 K/uL (0.00-0.05); IMMATURE GRAN PERCENT AUTO 0.3 % (0.0-0.4); LYMPHOCYTES PERCENT AUTO 22.6 % (24.0-44.0); MEAN CORPUSCULAR HEMOGLOBIN 30.2 pg (28.0-32.0); MEAN CORPUSCULAR HGB CONC 34.6 g/dL (32.0-36.0); MEAN CORPUSCULAR VOLUME 87.5 fL (83.0-99.0); MEAN PLATELET VOLUME 9.1 fL (9.4-12.4); MONOCYTES ABSOLUTE AUTO 0.82 K/uL (0.00-0.80); MONOCYTES PERCENT AUTO 10.9 % (0.0-8.0); NEUTROPHILS ABSOLUTE AUTO 4.81 K/uL (1.80-7.70); PLATELET COUNT,PLT 249 K/uL (150-400); RED BLOOD CELL COUNT 3.67 M/uL (4.52-5.90); WHITE BLOOD CELL COUNT,WBC 7.51 K/uL (3.9-11.3)
[2023-08-14 08:27] LABS: CALCIUM 9.1 mg/dL (8.5-10.1); CARBON DIOXIDE,CO2 22.3 mmol/L (21.0-32.0); CREATININE 2.4 mg/dL (0.8-1.3); EST CRCL DRUG DOSING (CG) 29.64 mL/min; MAGNESIUM 2.4 mg/dL (1.8-2.4); POTASSIUM,K 4.1 mmol/L (3.5-5.1)
[2023-08-14 08:39] LABS: INR 1.33 (0.86-1.11)
[2023-08-14] MEDS ORDERED: Albuterol 0.083% 2.5 MG/3 ML Neb Soln NEB PRN (09:15)
[2023-08-14] MEDS ORDERED: Morphine 2 MG/ML SYRINGE IVPUSH PRN (09:15)
[2023-08-14] MEDS ORDERED: fentaNYL 50 MCG/ML SDV IVPUSH PRN (09:15)
[2023-08-14] MEDS ORDERED: Ondansetron 4 MG/2 ML SDV IVPUSH PRN (09:15)
[2023-08-14] MEDS ORDERED: droPERidol 5 MG/2 ML SDV IVPUSH PRN (09:15)
[2023-08-14] MEDS ORDERED: Metoclopramide 10 MG/2 ML SDV IVPUSH PRN (09:15)
[2023-08-14] MEDS ORDERED: Naloxone 0.4 MG/ML SDV IVPUSH PRN (09:15)
[2023-08-14] MEDS ORDERED: HYDROmorphone 1 MG/ML Syringe IVPUSH PRN (09:15)
[2023-08-14] MEDS ORDERED: Bupivacaine 0.5% 30 ML SDV ONE (09:20)
[2023-08-14] MEDS ORDERED: Lidocaine 2% 5 ML SDV ONE (09:23)
[2023-08-14] MEDS ORDERED: propofoL 50 ML ONE ×2 (10:08→12:50)
[2023-08-14] MEDS ORDERED: fentaNYL 100 MCG/2 ML SDV ONE (10:09)
[2023-08-14] MEDS ORDERED: Phenylephrine HCl In 0.9% NaCl 1 MG/10 ML Syringe ONE ×2 (10:09→13:06)
[2023-08-14] MEDS ORDERED: Lidocaine 1% 5 ML VIAL ONE (10:14)
[2023-08-14] MEDS ORDERED: Rocuronium Bromide 50 MG/5 ML Syringe ONE (10:14)
[2023-08-14] MEDS ORDERED: Ondansetron 4 MG/2 ML SDV ONE ×2 (10:14→12:39)
[2023-08-14] MEDS ORDERED: ceFAZolin 2 GM Vial ONE (12:13)
[2023-08-14] MEDS ORDERED: Glycopyrrolate 0.2 MG/ML SDV ONE (12:16)
[2023-08-14] MEDS ORDERED: ePHEDrine 50 MG/ML SDV ONE (12:24)
[2023-08-14] MEDS ORDERED: Sugammadex Sodium 200 MG/2 ML VIAL IV ONE (12:38)
[2023-08-14] MEDS: Acetaminophen 325 MG Tab PO SCH (17:10)
[2023-08-14] MEDS: diphenhydrAMINE 50 MG Cap PO ONE (19:37)
[2023-08-15 05:46] LABS: BASOPHILS ABSOLUTE AUTO 0.02 K/uL (0.00-0.20); BASOPHILS PERCENT AUTO 0.3 % (0.0-1.0); EOSINOPHILS ABSOLUTE AUTO 0.09 K/uL (0.00-0.45); EOSINOPHILS PERCENT AUTO 1.2 % (0.0-6.0); HEMATOCRIT 31.2 % (42.0-52.0); HEMOGLOBIN 10.2 g/dL (14.0-18.0); IMMATURE GRAN ABSOLUTE AUTO 0.02 K/uL (0.00-0.05); IMMATURE GRAN PERCENT AUTO 0.3 % (0.0-0.4); LYMPHOCYTES ABSOLUTE AUTO 1.47 K/uL (1.00-4.80); LYMPHOCYTES PERCENT AUTO 20.2 % (24.0-44.0); MEAN CORPUSCULAR HEMOGLOBIN 28.9 pg (28.0-32.0); MEAN CORPUSCULAR HGB CONC 32.7 g/dL (32.0-36.0); MEAN CORPUSCULAR VOLUME 88.4 fL (83.0-99.0); MEAN PLATELET VOLUME 9.2 fL (9.4-12.4); MONOCYTES ABSOLUTE AUTO 0.97 K/uL (0.00-0.80); MONOCYTES PERCENT AUTO 13.3 % (0.0-8.0); NEUTROPHILS ABSOLUTE AUTO 4.71 K/uL (1.80-7.70); NEUTROPHILS PERCENT AUTO 64.7 % (41.0-71.0); PLATELET COUNT,PLT 252 K/uL (150-400); RED BLOOD CELL COUNT 3.53 M/uL (4.52-5.90); WHITE BLOOD CELL COUNT,WBC 7.28 K/uL (3.9-11.3)
[2023-08-15 06:03] LABS: INR 1.18 (0.86-1.11)
[2023-08-15 06:09] LABS: CALCIUM 8.9 mg/dL (8.5-10.1); CARBON DIOXIDE,CO2 22.9 mmol/L (21.0-32.0); CREATININE 2.6 mg/dL (0.8-1.3); EST CRCL DRUG DOSING (CG) 27.36 mL/min; POTASSIUM,K 4.4 mmol/L (3.5-5.1)
[2023-08-15] MEDS: Heparin Sodium/0.45% NaCl 500 ML IV SCH (10:21)
[2023-08-15] MEDS: Warfarin 5 MG, Warfarin 2.5 MG PO ONE (14:04)
[2023-08-15] MEDS: Warfarin 2.5 MG Tab ONE (14:04)
[2023-08-15] MEDS: Warfarin Sliding Scale PO SCH (14:06)
[2023-08-15] MEDS: Warfarin 5 MG Tab ONE (14:06)
[2023-08-15] MEDS: Heparin Sodium 5,000 Units/ML Vial IVPUSH PRN (18:57)
[2023-08-16] MEDS: Melatonin 3 MG Tab PO PRN (01:07)
[2023-08-16 04:10] LABS: BASOPHILS ABSOLUTE AUTO 0.02 K/uL (0.00-0.20); BASOPHILS PERCENT AUTO 0.2 % (0.0-1.0); EOSINOPHILS ABSOLUTE AUTO 0.03 K/uL (0.00-0.45); EOSINOPHILS PERCENT AUTO 0.3 % (0.0-6.0); HEMOGLOBIN 8.5 g/dL (14.0-18.0); IMMATURE GRAN ABSOLUTE AUTO 0.03 K/uL (0.00-0.05); IMMATURE GRAN PERCENT AUTO 0.3 % (0.0-0.4); LYMPHOCYTES ABSOLUTE AUTO 1.85 K/uL (1.00-4.80); LYMPHOCYTES PERCENT AUTO 18.1 % (24.0-44.0); MEAN CORPUSCULAR HEMOGLOBIN 29.4 pg (28.0-32.0); MEAN CORPUSCULAR VOLUME 86.5 fL (83.0-99.0); MONOCYTES ABSOLUTE AUTO 1.01 K/uL (0.00-0.80); MONOCYTES PERCENT AUTO 9.9 % (0.0-8.0); NEUTROPHILS ABSOLUTE AUTO 7.26 K/uL (1.80-7.70); NEUTROPHILS PERCENT AUTO 71.2 % (41.0-71.0); PLATELET COUNT,PLT 282 K/uL (150-400); RED BLOOD CELL COUNT 2.89 M/uL (4.52-5.90)
[2023-08-16 04:34] LABS: CALCIUM 9.3 mg/dL (8.5-10.1); CARBON DIOXIDE,CO2 22.9 mmol/L (21.0-32.0); CREATININE 2.7 mg/dL (0.8-1.3); EST CRCL DRUG DOSING (CG) 26.35 mL/min; POTASSIUM,K 4.6 mmol/L (3.5-5.1)
[2023-08-16 04:37] LABS: INR 1.22 (0.86-1.11)
[2023-08-16] MEDS ORDERED: Bisacodyl 10 MG Supp RECTAL PRN (09:59)
[2023-08-16] MEDS ORDERED: Polyethylene Glycol 3350 Powder 17 GM Packet PO PRN (09:59)
[2023-08-16] MEDS: Sodium Chloride 0.9% 500 ML IV SCH (10:35)
[2023-08-16] MEDS: Sennosides/Docusate Sodium 50-8.6 MG Tab PO SCH (11:04)
[2023-08-16] MEDS: Warfarin 5 MG Tab PO SCH (13:43)
[2023-08-16 16:27] LABS: CALCIUM 9.4 mg/dL (8.5-10.1); CARBON DIOXIDE,CO2 23.9 mmol/L (21.0-32.0); CREATININE 2.5 mg/dL (0.8-1.3); EST CRCL DRUG DOSING (CG) 28.45 mL/min; POTASSIUM,K 4.6 mmol/L (3.5-5.1)
[2023-08-16] MEDS: Hydrocortisone 1% Crm 30 GM Tube TOP PRN (20:34)
[2023-08-17 05:56] LABS: BASOPHILS ABSOLUTE AUTO 0.01 K/uL (0.00-0.20); BASOPHILS PERCENT AUTO 0.1 % (0.0-1.0); EOSINOPHILS ABSOLUTE AUTO 0.23 K/uL (0.00-0.45); EOSINOPHILS PERCENT AUTO 3.2 % (0.0-6.0); HEMATOCRIT 29.7 % (42.0-52.0); IMMATURE GRAN ABSOLUTE AUTO 0.02 K/uL (0.00-0.05); IMMATURE GRAN PERCENT AUTO 0.3 % (0.0-0.4); LYMPHOCYTES ABSOLUTE AUTO 1.45 K/uL (1.00-4.80); LYMPHOCYTES PERCENT AUTO 20.4 % (24.0-44.0); MEAN CORPUSCULAR HEMOGLOBIN 29.3 pg (28.0-32.0); MEAN CORPUSCULAR HGB CONC 33.7 g/dL (32.0-36.0); MEAN CORPUSCULAR VOLUME 87.1 fL (83.0-99.0); MEAN PLATELET VOLUME 9.2 fL (9.4-12.4); MONOCYTES ABSOLUTE AUTO 0.75 K/uL (0.00-0.80); MONOCYTES PERCENT AUTO 10.6 % (0.0-8.0); NEUTROPHILS ABSOLUTE AUTO 4.64 K/uL (1.80-7.70); NEUTROPHILS PERCENT AUTO 65.4 % (41.0-71.0); PLATELET COUNT,PLT 273 K/uL (150-400); RED BLOOD CELL COUNT 3.41 M/uL (4.52-5.90)
[2023-08-17 06:19] LABS: CALCIUM 9.5 mg/dL (8.5-10.1); CARBON DIOXIDE,CO2 23.2 mmol/L (21.0-32.0); CREATININE 2.4 mg/dL (0.8-1.3); EST CRCL DRUG DOSING (CG) 29.64 mL/min; POTASSIUM,K 4.9 mmol/L (3.5-5.1)
[2023-08-17 06:24] LABS: INR 1.22 (0.86-1.11)
[2023-08-17] MEDS: Sodium Chloride 0.9% 500 ML IV SCH (07:44)
[2023-08-17] MEDS: Warfarin 5 MG, Warfarin 2.5 MG PO SCH (13:30)
[2023-08-18 05:57] LABS: BASOPHILS ABSOLUTE AUTO 0.02 K/uL (0.00-0.20); BASOPHILS PERCENT AUTO 0.3 % (0.0-1.0); EOSINOPHILS ABSOLUTE AUTO 0.27 K/uL (0.00-0.45); EOSINOPHILS PERCENT AUTO 4.7 % (0.0-6.0); HEMOGLOBIN 9.7 g/dL (14.0-18.0); IMMATURE GRAN ABSOLUTE AUTO 0.02 K/uL (0.00-0.05); IMMATURE GRAN PERCENT AUTO 0.3 % (0.0-0.4); LYMPHOCYTES ABSOLUTE AUTO 1.49 K/uL (1.00-4.80); LYMPHOCYTES PERCENT AUTO 25.9 % (24.0-44.0); MEAN CORPUSCULAR HEMOGLOBIN 28.7 pg (28.0-32.0); MEAN CORPUSCULAR HGB CONC 32.3 g/dL (32.0-36.0); MEAN CORPUSCULAR VOLUME 88.8 fL (83.0-99.0); MEAN PLATELET VOLUME 9.2 fL (9.4-12.4); MONOCYTES ABSOLUTE AUTO 0.61 K/uL (0.00-0.80); MONOCYTES PERCENT AUTO 10.6 % (0.0-8.0); NEUTROPHILS ABSOLUTE AUTO 3.35 K/uL (1.80-7.70); NEUTROPHILS PERCENT AUTO 58.2 % (41.0-71.0); PLATELET COUNT,PLT 264 K/uL (150-400); RED BLOOD CELL COUNT 3.38 M/uL (4.52-5.90); WHITE BLOOD CELL COUNT,WBC 5.76 K/uL (3.9-11.3)
[2023-08-18 06:12] LABS: INR 1.26 (0.86-1.11); PTT,PARTIAL THROMBOPLSTIN TIME 73.5 SEC (23.9-30.7)
[2023-08-18 06:45] LABS: A/G RATIO 0.7 (0.9-1.6); ALBUMIN 2.4 g/dL (3.4-5.0); BILIRUBIN TOTAL 0.3 mg/dL (0.2-1.0); CALCIUM 9.2 mg/dL (8.5-10.1); CARBON DIOXIDE,CO2 22.9 mmol/L (21.0-32.0); CREATININE 2.1 mg/dL (0.8-1.3); EST CRCL DRUG DOSING (CG) 33.87 mL/min; POTASSIUM,K 4.7 mmol/L (3.5-5.1); PROTEIN TOTAL,TP 5.9 g/dL (6.4-8.2)
[2023-08-18] MEDS: Enoxaparin 100 MG/1 ML Syringe SUBCUT ONE (10:30)
[2023-08-18] MEDS ORDERED: Warfarin 10 MG Tab PO SCH (14:00)
== END 2023-08-18 13:00 | disposition home or self-care (01) | DRG 501 ==
LOC: MW.ED 11:58 → MW.MS 18:08
PROVIDERS: ADMIT Internal Medicine; ATTEND Internal Medicine
PROC: 0LQR0ZZ Repair Left Knee Tendon, Open Approach (ICD-10-PCS; principal; 2023-08-14 12:00)
DX: S86.812A Strain of other muscle(s) and tendon(s) at lower leg level, left leg, initial encounter (principal); S76.112A Strain of left quadriceps muscle, fascia and tendon, initial encounter; N18.4 Chronic kidney disease, stage 4 (severe); S80.02XA Contusion of left knee, initial encounter; I12.9 Hypertensive chronic kidney disease with stage 1 through stage 4 chronic kidney disease, or unspecified chronic kidney disease; E78.5 Hyperlipidemia, unspecified; M10.9 Gout, unspecified; E78.00 Pure hypercholesterolemia, unspecified; Z88.1 Allergy status to other antibiotic agents; Z88.6 Allergy status to analgesic agent; Z75.8 Other problems related to medical facilities and other health care; W10.9XXA Fall (on) (from) unspecified stairs and steps, initial encounter; G89.29 Other chronic pain; M54.2 Cervicalgia; M54.9 Dorsalgia, unspecified; G47.30 Sleep apnea, unspecified; Z88.8 Allergy status to other drugs, medicaments and biological substances; Z88.2 Allergy status to sulfonamides; Z97.3 Presence of spectacles and contact lenses; Z79.01 Long term (current) use of anticoagulants; Z86.16 Personal history of COVID-19; Z90.49 Acquired absence of other specified parts of digestive tract; Z98.890 Other specified postprocedural states; Z79.899 Other long term (current) drug therapy; Z86.711 Personal history of pulmonary embolism; X50.1XXA Overexertion from prolonged static or awkward postures, initial encounter
CPT/HCPCS: 01320; 36415; 73562-26-LT; 73562-LT; 73700-26-LT; 73700-LT; 73721-26-LT; 73721-LT; 80048; 80053; 83690; 83735; 85025; 85610; 85730; 93971-26-LT; 93971-LT; 97116-GP; 97162-GP; 97530-GP; 99100; 99222; 99232; 99239; 99284; 99285; A9270-GY; J0665; J0690; J1644; J1650; J2270; J2371; J2405; J2704; J3010; J3490; J7030; J7040

== ENCOUNTER 2023-08-29 09:48 | Observation (INO) | payer OTHER ==
[2023-08-29] MEDS: Sodium Chloride 0.9% 2.5 ML Syringe FLUSH PRN (10:08)
[2023-08-29] MEDS: Sodium Chloride 0.9% 1,000 ML IV ONE ×2 (10:08→10:46)
[2023-08-29] MEDS: Sodium Chloride 0.9% 10 ML Syringe FLUSH PRN (10:08)
[2023-08-29 10:12] LABS: BASOPHILS ABSOLUTE AUTO 0.03 K/uL (0.00-0.20); BASOPHILS PERCENT AUTO 0.3 % (0.0-1.0); EOSINOPHILS ABSOLUTE AUTO 0.03 K/uL (0.00-0.45); EOSINOPHILS PERCENT AUTO 0.3 % (0.0-6.0); HEMATOCRIT 34.7 % (42.0-52.0); IMMATURE GRAN ABSOLUTE AUTO 0.05 K/uL (0.00-0.05); IMMATURE GRAN PERCENT AUTO 0.5 % (0.0-0.4); LYMPHOCYTES ABSOLUTE AUTO 1.95 K/uL (1.00-4.80); LYMPHOCYTES PERCENT AUTO 17.6 % (24.0-44.0); MEAN CORPUSCULAR HEMOGLOBIN 28.2 pg (28.0-32.0); MEAN CORPUSCULAR HGB CONC 31.7 g/dL (32.0-36.0); MEAN PLATELET VOLUME 8.8 fL (9.4-12.4); MONOCYTES ABSOLUTE AUTO 1.11 K/uL (0.00-0.80); NEUTROPHILS ABSOLUTE AUTO 7.88 K/uL (1.80-7.70); NEUTROPHILS PERCENT AUTO 71.3 % (41.0-71.0); PLATELET COUNT,PLT 426 K/uL (150-400); WHITE BLOOD CELL COUNT,WBC 11.05 K/uL (3.9-11.3)
[2023-08-29 10:20] LABS: INR 2.01 (0.86-1.11)
[2023-08-29 10:39] LABS: A/G RATIO 0.6 (0.9-1.6); ALBUMIN 2.7 g/dL (3.4-5.0); BILIRUBIN TOTAL 0.6 mg/dL (0.2-1.0); CALCIUM 9.8 mg/dL (8.5-10.1); CARBON DIOXIDE,CO2 21.5 mmol/L (21.0-32.0); CREATININE 3.5 mg/dL (0.8-1.3); EST CRCL DRUG DOSING (CG) 20.32 mL/min; PROTEIN TOTAL,TP 7.3 g/dL (6.4-8.2)
[2023-08-29 11:16] LABS: APPEARANCE,URINE CLEAR; BILIRUBIN,URINE NEGATIVE (NEGATIVE); COLOR,URINE YELLOW; GLUCOSE,URINE NEGATIVE (NEGATIVE); KETONES,URINE NEGATIVE (NEGATIVE); LEUKOCYTE ESTERASE,URINE NEGATIVE (NEGATIVE); NITRITE,URINE NEGATIVE (NEGATIVE); OCCULT BLOOD,URINE NEGATIVE (NEGATIVE); PH,URINE 5.5 (5.0-8.0); PROTEIN,URINE NEGATIVE (NEGATIVE); UROBILINOGEN,URINE 0.2 EU/dL (<2.0)
[2023-08-29 11:49] LABS: EPITHELIAL CELLS,URINE RARE (NONE-FEW); RBC,URINE 0-1 (0-2/HPF); WBC,URINE 0-1 (0-5/HPF)
[2023-08-29 11:50] LABS: BACTERIA,URINE RARE (NEGATIVE)
[2023-08-29] MEDS ORDERED: Sodium Chloride 0.9% 2.5 ML Syringe FLUSH PRN (12:11)
[2023-08-29] MEDS ORDERED: Ondansetron 4 MG/2 ML SDV IVPUSH PRN (12:11)
[2023-08-29] MEDS ORDERED: Docusate Sodium 100 MG Cap PO PRN (12:11)
[2023-08-29] MEDS ORDERED: Polyethylene Glycol 3350 Powder 17 GM Packet PO PRN (12:11)
[2023-08-29] MEDS ORDERED: Sodium Chloride 0.9% 10 ML Syringe FLUSH PRN (12:11)
[2023-08-29] MEDS ORDERED: oxyCODONE 5 MG Tab PO PRN (12:32)
[2023-08-29] MEDS: Sodium Chloride 0.9% 1,000 ML IV SCH (13:18)
[2023-08-29] MEDS: Warfarin 5 MG, Warfarin 2.5 MG PO ONE (14:55)
[2023-08-29] MEDS: Acetaminophen 325 MG Tab PO PRN (14:58)
[2023-08-29] MEDS: Warfarin Sliding Scale PO SCH (15:04)
[2023-08-29] MEDS: atorvaSTATin 40 MG Tab PO SCH (19:53)
[2023-08-30 05:51] LABS: BASOPHILS ABSOLUTE AUTO 0.03 K/uL (0.00-0.20); BASOPHILS PERCENT AUTO 0.4 % (0.0-1.0); EOSINOPHILS ABSOLUTE AUTO 0.08 K/uL (0.00-0.45); EOSINOPHILS PERCENT AUTO 1.1 % (0.0-6.0); HEMATOCRIT 28.5 % (42.0-52.0); HEMOGLOBIN 9.3 g/dL (14.0-18.0); IMMATURE GRAN ABSOLUTE AUTO 0.01 K/uL (0.00-0.05); IMMATURE GRAN PERCENT AUTO 0.1 % (0.0-0.4); LYMPHOCYTES ABSOLUTE AUTO 1.58 K/uL (1.00-4.80); LYMPHOCYTES PERCENT AUTO 22.7 % (24.0-44.0); MEAN CORPUSCULAR HEMOGLOBIN 28.4 pg (28.0-32.0); MEAN CORPUSCULAR HGB CONC 32.6 g/dL (32.0-36.0); MEAN CORPUSCULAR VOLUME 87.2 fL (83.0-99.0); MEAN PLATELET VOLUME 8.8 fL (9.4-12.4); MONOCYTES ABSOLUTE AUTO 0.78 K/uL (0.00-0.80); MONOCYTES PERCENT AUTO 11.2 % (0.0-8.0); NEUTROPHILS ABSOLUTE AUTO 4.49 K/uL (1.80-7.70); NEUTROPHILS PERCENT AUTO 64.5 % (41.0-71.0); PLATELET COUNT,PLT 345 K/uL (150-400); RED BLOOD CELL COUNT 3.27 M/uL (4.52-5.90); WHITE BLOOD CELL COUNT,WBC 6.97 K/uL (3.9-11.3)
[2023-08-30 06:05] LABS: INR 2.37 (0.86-1.11)
[2023-08-30 06:08] LABS: CALCIUM 9.3 mg/dL (8.5-10.1); CARBON DIOXIDE,CO2 20.9 mmol/L (21.0-32.0); CREATININE 2.2 mg/dL (0.8-1.3); EST CRCL DRUG DOSING (CG) 32.33 mL/min; POTASSIUM,K 4.2 mmol/L (3.5-5.1)
== END 2023-08-30 14:30 | disposition home or self-care (01) ==
LOC: MW.ED 09:48 → MW.MS 11:55
PROVIDERS: ADMIT Internal Medicine; ATTEND Internal Medicine
DX: N17.9 Acute kidney failure, unspecified (principal); N18.9 Chronic kidney disease, unspecified; I95.9 Hypotension, unspecified; E86.0 Dehydration; M10.9 Gout, unspecified; S76.112D Strain of left quadriceps muscle, fascia and tendon, subsequent encounter; I26.99 Other pulmonary embolism without acute cor pulmonale; G47.30 Sleep apnea, unspecified; Z79.01 Long term (current) use of anticoagulants; Z79.899 Other long term (current) drug therapy
CPT/HCPCS: 36415; 80048; 80053; 81001; 83605; 83690; 84484; 85025; 85610; 93005; 96360; 96361; 97161; 99285; A9270; G0378; J3490; J7030; 93010; 99024; 99222; 99238; 99284

== ENCOUNTER 2023-09-07 14:51 | Inpatient (IN) | payer OTHER ==
[2023-09-07 15:11] LABS: BASOPHILS ABSOLUTE AUTO 0.04 K/uL (0.00-0.20); BASOPHILS PERCENT AUTO 0.4 % (0.0-1.0); EOSINOPHILS ABSOLUTE AUTO 0.06 K/uL (0.00-0.45); EOSINOPHILS PERCENT AUTO 0.7 % (0.0-6.0); HEMATOCRIT 33.2 % (42.0-52.0); HEMOGLOBIN 10.5 g/dL (14.0-18.0); IMMATURE GRAN ABSOLUTE AUTO 0.04 K/uL (0.00-0.05); IMMATURE GRAN PERCENT AUTO 0.4 % (0.0-0.4); LYMPHOCYTES ABSOLUTE AUTO 2.08 K/uL (1.00-4.80); LYMPHOCYTES PERCENT AUTO 22.7 % (24.0-44.0); MEAN CORPUSCULAR HEMOGLOBIN 28.4 pg (28.0-32.0); MEAN CORPUSCULAR HGB CONC 31.6 g/dL (32.0-36.0); MEAN CORPUSCULAR VOLUME 89.7 fL (83.0-99.0); MEAN PLATELET VOLUME 8.5 fL (9.4-12.4); MONOCYTES ABSOLUTE AUTO 0.85 K/uL (0.00-0.80); MONOCYTES PERCENT AUTO 9.3 % (0.0-8.0); NEUTROPHILS ABSOLUTE AUTO 6.11 K/uL (1.80-7.70); NEUTROPHILS PERCENT AUTO 66.5 % (41.0-71.0); PLATELET COUNT,PLT 418 K/uL (150-400); WHITE BLOOD CELL COUNT,WBC 9.18 K/uL (3.9-11.3)
[2023-09-07] MEDS: Sodium Chloride 0.9% 1,000 ML IV ONE ×3 (15:12→15:50)
[2023-09-07] MEDS: Sodium Chloride 0.9% 10 ML Syringe FLUSH PRN (15:12)
[2023-09-07 15:16] LABS: BASE EXCESS VENOUS -3.1 (-2.0-3.0); BICARBONATE,VENOUS 23 mEQ/mL (22-28); PCO2 VENOUS 44 mmHG (41-51); PH,VENOUS 7.32 (7.31-7.41); PO2 VENOUS < 30 mmHG (35-45)
[2023-09-07 15:20] LABS: INR 1.88 (0.86-1.11)
[2023-09-07] MEDS: Acetaminophen 500 MG Tab PO ONE (15:21)
[2023-09-07] MEDS: Piperacillin/Tazobactam 4.5 GM in Sodium Chloride 0.9% 100 ML IV ONE (15:21)
[2023-09-07] MEDS: VANCOmycin 1.75 GM/350 ML 1.75 GM in Premix Bag 1 BAG IV ONE (15:36)
[2023-09-07 15:50] LABS: A/G RATIO 0.5 (0.9-1.6); ALBUMIN 2.4 g/dL (3.4-5.0); BILIRUBIN TOTAL 0.4 mg/dL (0.2-1.0); CALCIUM 10.5 mg/dL (8.5-10.1); CARBON DIOXIDE,CO2 22.6 mmol/L (21.0-32.0); CREATININE 2.6 mg/dL (0.8-1.3); EST CRCL DRUG DOSING (CG) 27.36 mL/min; POTASSIUM,K 4.2 mmol/L (3.5-5.1)
[2023-09-07 15:51] LABS: LACTIC ACID 1.6 mmol/L (0.4-2.0)
[2023-09-07 16:20] LABS: CORONAVIRUS COVID-19 NAA NEGATIVE (NEGATIVE); INFLUENZA A NAA NEGATIVE (NEGATIVE); INFLUENZA B NAA NEGATIVE (NEGATIVE); RESPIRATORY SYNCYTIAL VIR NAA NEGATIVE (NEGATIVE)
[2023-09-07 17:10] LABS: APPEARANCE,URINE SLT CLOUDY; BILIRUBIN,URINE NEGATIVE (NEGATIVE); COLOR,URINE YELLOW; GLUCOSE,URINE NEGATIVE (NEGATIVE); KETONES,URINE NEGATIVE (NEGATIVE); LEUKOCYTE ESTERASE,URINE NEGATIVE (NEGATIVE); NITRITE,URINE NEGATIVE (NEGATIVE); OCCULT BLOOD,URINE MODERATE (NEGATIVE); PH,URINE 5.5 (5.0-8.0); PROTEIN,URINE NEGATIVE (NEGATIVE); UROBILINOGEN,URINE 0.2 EU/dL (<2.0)
[2023-09-07 17:26] LABS: AMORPHOUS SEDIMENT,URINE MANY (NEGATIVE); BACTERIA,URINE 2+ (NEGATIVE); EPITHELIAL CELLS,URINE RARE (NONE-FEW); MUCUS,URINE OCCASIONAL (NONE-MOD); WBC,URINE 0-1 (0-5/HPF)
[2023-09-07] MEDS: Iopamidol 755 MG/ML 500 ML Multipack Bottle IVPUSH STA (19:42)
[2023-09-07] MEDS: Sodium Chloride 0.9% 2.5 ML Syringe FLUSH PRN (20:12)
[2023-09-07] MEDS: Sodium Chloride 0.9% 1,000 ML IV SCH (21:51)
[2023-09-07] MEDS ORDERED: Albuterol/Ipratropium 3.0-0.5 MG/3 ML Neb Soln NEB PRN (22:09)
[2023-09-07] MEDS ORDERED: Acetaminophen 325 MG Tab PO PRN (22:09)
[2023-09-07] MEDS ORDERED: Acetaminophen 650 MG Supp RECTAL PRN (22:09)
[2023-09-07] MEDS ORDERED: Melatonin 3 MG Tab PO PRN (22:09)
[2023-09-07] MEDS ORDERED: Ondansetron 4 MG/2 ML SDV IVPUSH PRN (22:09)
[2023-09-07] MEDS ORDERED: Polyethylene Glycol 3350 Powder 17 GM Packet PO PRN (22:09)
[2023-09-08] MEDS: Pantoprazole 40 MG in Sodium Chloride 0.9% 10 ML IVPUSH SCH (00:26)
[2023-09-08] MEDS: Warfarin 2.5 MG Tab PO ONE (00:27)
[2023-09-08] MEDS: Warfarin 5 MG Tab PO ONE ×2 (00:33→14:21)
[2023-09-08] MEDS: VANCOmycin 1.75 GM/350 ML 350 ML IV ONE (00:34)
[2023-09-08] MEDS: Piperacillin/Tazobactam 4.5 GM in Sodium Chloride 0.9% 100 ML IV SCH ×2 (00:50→10:06)
[2023-09-08] MEDS: atorvaSTATin 40 MG Tab PO SCH (00:50)
[2023-09-08 05:51] LABS: BASOPHILS ABSOLUTE AUTO 0.02 K/uL (0.00-0.20); BASOPHILS PERCENT AUTO 0.3 % (0.0-1.0); EOSINOPHILS ABSOLUTE AUTO 0.13 K/uL (0.00-0.45); HEMATOCRIT 23.9 % (42.0-52.0); HEMOGLOBIN 7.6 g/dL (14.0-18.0); IMMATURE GRAN ABSOLUTE AUTO 0.02 K/uL (0.00-0.05); IMMATURE GRAN PERCENT AUTO 0.3 % (0.0-0.4); LYMPHOCYTES ABSOLUTE AUTO 1.75 K/uL (1.00-4.80); LYMPHOCYTES PERCENT AUTO 26.3 % (24.0-44.0); MEAN CORPUSCULAR HEMOGLOBIN 28.7 pg (28.0-32.0); MEAN CORPUSCULAR HGB CONC 31.8 g/dL (32.0-36.0); MEAN CORPUSCULAR VOLUME 90.2 fL (83.0-99.0); MEAN PLATELET VOLUME 8.9 fL (9.4-12.4); MONOCYTES ABSOLUTE AUTO 0.75 K/uL (0.00-0.80); MONOCYTES PERCENT AUTO 11.3 % (0.0-8.0); NEUTROPHILS ABSOLUTE AUTO 3.98 K/uL (1.80-7.70); NEUTROPHILS PERCENT AUTO 59.8 % (41.0-71.0); PLATELET COUNT,PLT 316 K/uL (150-400); RED BLOOD CELL COUNT 2.65 M/uL (4.52-5.90); WHITE BLOOD CELL COUNT,WBC 6.65 K/uL (3.9-11.3)
[2023-09-08 06:04] LABS: INR 2.34 (0.86-1.11)
[2023-09-08 06:17] LABS: A/G RATIO 0.5 (0.9-1.6); BILIRUBIN TOTAL 0.3 mg/dL (0.2-1.0); CALCIUM 9.5 mg/dL (8.5-10.1); CARBON DIOXIDE,CO2 22.3 mmol/L (21.0-32.0); CREATININE 2.3 mg/dL (0.8-1.3); EST CRCL DRUG DOSING (CG) 30.93 mL/min; POTASSIUM,K 4.3 mmol/L (3.5-5.1); PROTEIN TOTAL,TP 5.7 g/dL (6.4-8.2)
[2023-09-08] MEDS: Sodium Chloride 0.9% 1,000 ML IV SCH (06:39)
[2023-09-08] MEDS ORDERED: Furosemide 80 MG Tab PO SCH (09:00)
[2023-09-08] MEDS: Warfarin Sliding Scale PO SCH (14:24)
[2023-09-08] MEDS ORDERED: atorvaSTATin 40 MG Tab PO SCH (21:00)
[2023-09-09 06:45] LABS: BASOPHILS ABSOLUTE AUTO 0.02 K/uL (0.00-0.20); BASOPHILS PERCENT AUTO 0.3 % (0.0-1.0); EOSINOPHILS ABSOLUTE AUTO 0.13 K/uL (0.00-0.45); EOSINOPHILS PERCENT AUTO 2.1 % (0.0-6.0); HEMATOCRIT 26.4 % (42.0-52.0); HEMOGLOBIN 8.7 g/dL (14.0-18.0); IMMATURE GRAN ABSOLUTE AUTO 0.02 K/uL (0.00-0.05); IMMATURE GRAN PERCENT AUTO 0.3 % (0.0-0.4); LYMPHOCYTES ABSOLUTE AUTO 1.72 K/uL (1.00-4.80); LYMPHOCYTES PERCENT AUTO 28.2 % (24.0-44.0); MEAN CORPUSCULAR HEMOGLOBIN 28.7 pg (28.0-32.0); MEAN CORPUSCULAR VOLUME 87.1 fL (83.0-99.0); MEAN PLATELET VOLUME 8.7 fL (9.4-12.4); MONOCYTES ABSOLUTE AUTO 0.62 K/uL (0.00-0.80); MONOCYTES PERCENT AUTO 10.2 % (0.0-8.0); NEUTROPHILS ABSOLUTE AUTO 3.58 K/uL (1.80-7.70); NEUTROPHILS PERCENT AUTO 58.9 % (41.0-71.0); PLATELET COUNT,PLT 328 K/uL (150-400); RED BLOOD CELL COUNT 3.03 M/uL (4.52-5.90); WHITE BLOOD CELL COUNT,WBC 6.09 K/uL (3.9-11.3)
[2023-09-09 07:17] LABS: INR 2.47 (0.86-1.11)
[2023-09-09 07:22] LABS: A/G RATIO 0.5 (0.9-1.6); BILIRUBIN TOTAL 0.3 mg/dL (0.2-1.0); CALCIUM 9.6 mg/dL (8.5-10.1); CARBON DIOXIDE,CO2 20.1 mmol/L (21.0-32.0); CREATININE 2.2 mg/dL (0.8-1.3); EST CRCL DRUG DOSING (CG) 32.33 mL/min; POTASSIUM,K 4.4 mmol/L (3.5-5.1); PROTEIN TOTAL,TP 5.8 g/dL (6.4-8.2)
[2023-09-09] MEDS: Warfarin 5 MG, Warfarin 2.5 MG PO ONE (14:02)
== END 2023-09-09 16:20 | disposition home or self-care (01) | DRG 690 ==
LOC: MW.ED 14:51 → MW.MS 21:30
PROVIDERS: ADMIT Family Medicine; ATTEND Family Medicine
DX: N30.91 Cystitis, unspecified with hematuria (principal); N17.9 Acute kidney failure, unspecified; R79.1 Abnormal coagulation profile; E86.0 Dehydration; I12.9 Hypertensive chronic kidney disease with stage 1 through stage 4 chronic kidney disease, or unspecified chronic kidney disease; N18.30 Chronic kidney disease, stage 3 unspecified; E78.5 Hyperlipidemia, unspecified; I95.9 Hypotension, unspecified; M10.9 Gout, unspecified; M54.2 Cervicalgia; G89.29 Other chronic pain; F43.10 Post-traumatic stress disorder, unspecified; G47.30 Sleep apnea, unspecified; S86.812S Strain of other muscle(s) and tendon(s) at lower leg level, left leg, sequela; Z88.1 Allergy status to other antibiotic agents; R09.89 Other specified symptoms and signs involving the circulatory and respiratory systems; N39.0 Urinary tract infection, site not specified; I10 Essential (primary) hypertension; Z90.89 Acquired absence of other organs; E78.00 Pure hypercholesterolemia, unspecified; Z86.711 Personal history of pulmonary embolism; Z88.8 Allergy status to other drugs, medicaments and biological substances; Z79.01 Long term (current) use of anticoagulants; Z79.899 Other long term (current) drug therapy; Z90.49 Acquired absence of other specified parts of digestive tract
CPT/HCPCS: 0241U; 36415; 70450; 71045; 71275; 74176; 80053; 80202; 81001; 82803; 83605; 83690; 83735; 83880; 84484; 85025; 85610; 87040; 87086; 93005; 93971; 97161; 97530; 93010; 99222; 99232; 99239; 99285; 99291; A9270-GY; J2470; J2543; J3370; J3372; J3490; J7030; J7050; Q9967